=== PATIENT | male | born 1955 | race Caucasian/White ===

== ENCOUNTER 2016-08-03 11:28 | Emergency (ER) | payer OTHER ==
[~2016-08-03] VITALS: Ht 180.3 cm; Wt 124.0 kg
[2016-08-03 11:32] VITALS: BP 149/101; PULSE 85; RESP 16; TEMP 98.8; O2SAT 96
--- NOTE | 2016-08-03 11:49 | PD ---
HPI . congestion for 3 weeks Chief Complaint: Cold / Flu Symptoms Time Seen by Provider: 11:49 Travel History International Travel<30 days: No Contact w/Intl Traveler<30days: No Traveled to known affect area: No History of Present Illness HPI 61-year-old male with no past medical history here with complaints of congestion for 3 weeks. Patient is also complaining of a sore throat that recently started. Patient tells me that he has had some intermittent congestion in his chest for about 3 weeks. He has not seen anyone for this. He denies any fever or chills, chest pain, nausea, vomiting or diaphoresis. His blood pressure is elevated today and when we discussed whether or not he is on any blood pressure medications he tells me no. He does not have a primary care provider in the area. We discussed establishing with PCP In the area. [facility] Past Medical History Medical History: Denies Significant Hx Tetanus Vaccination: > 5 Years Influenza Vaccination: No Past Surgical History Other Surgery: Yes (Veins removed Lt. leg) Social History Alcohol Use: Yes (Occ.) Tobacco Use: No Substance Use: No Allergies-Medications (Allergen,Severity, Reaction): Coded Allergies: No Known Allergies (Unverified , 08/03/16) Reported Meds & Prescriptions Reported Meds & Active Scripts Active Medrol Dosepak (Methylprednisolone) 4 Mg Dspk 4 Mg PO DIRECTED Per Pharmacist direction Zithromax Z-[place] (Azithromycin) 250 Mg Dspk 250 Mg PO DIRECTED 500 MG (2 tabs) day 1, then 1 tab days 2-5. Tessalon Perles (Benzonatate) 100 Mg Cap 100 Mg PO TID PRN Review of Systems General / Constitutional: No: Fever Eyes: No: Visual changes HENT: Positive: Sore Throat, Congestion, No: Headaches Cardiovascular: No: Chest Pain or Discomfort Respiratory: Positive: Cough, No: Shortness of Breath Gastrointestinal: No: Abdominal Pain Genitourinary: No: Dysuria Musculoskeletal: No: Pain Skin: No Rash Neurologic: No: Weakness Psychiatric: No: Depression Endocrine: No: Polydipsia Hematologic/Lymphatic: No: Easy Bruising Physical Exam Narrative GENERAL: AAO x 3, no acute distress, Well-nourished, well-developed patient. SKIN: Warm and dry. No visible rashes or bruising. HEAD: Normocephalic and atraumatic. EYES: No scleral icterus. No injection or drainage. ENT: No nasal drainage noted. Mucous membranes pink. Airway patent. Moderate posterior pharynx erythema, without exudate. TMs normal bilaterally. NECK: Supple, trachea midline. No JVD.no lymphadenopathy. CARDIOVASCULAR: Regular rate and rhythm without murmurs, gallops, or rubs. RESPIRATORY: Breath sounds equal bilaterally. No accessory muscle use. No rhonchi or rales. GASTROINTESTINAL: Abdomen soft, non-tender, nondistended. EXTREMITIES: No cyanosis or edema. BACK: Nontender without obvious deformity. No CVA tenderness. PSYCH: AAO x 3, normal affect. Data Data Last Documented VS Vital Signs Date Time Temp Pulse Resp B/P Pulse Ox O2 Delivery O2 Flow Rate FiO2 08/03/16 11:40 18 Room Air 08/03/16 11:32 98.8 85 149/101 96 MDM Medical Decision Making Medical Screen Exam Complete: Yes Emergency Medical Condition: Yes Medical Record Reviewed: Yes Differential Diagnosis Acute pharyngitis, acute sinusitis, acute bronchitis Narrative Course 61-year-old male with no past medical history here with complaints of congestion for 3 weeks. Patient is also complaining of a sore throat that recently started. Patient tells me that he has had some intermittent congestion in his chest for about 3 weeks. He has not seen anyone for this. He denies any fever or chills, chest pain, nausea, vomiting or diaphoresis. His blood pressure is elevated today and when we discussed whether or not he is on any blood pressure medications he tells me no. He does not have a primary care provider in the area. We discussed establishing with PCP In the area. Patient seen and examined. Exam is essentially unremarkable except for posterior pharynx erythema without exudates. I do not recommend any further testing, however I do recommend that he establishes with a primary care provider for further work up of his blood pressure. I discussed this with him and his significant other and explained the importance of bp control. Patient states, "you can lead a horse to water, but you can't make him drink" I explained I will go ahead and treat him for an acute pharyngitis as well as bronchitis. We will use azithromycin( to also cover for PNA), prednisone and Tessalon Perles when necessary. Once again, I stressed the need to establish with PCP. Patient verbalized understanding of instructions, questions were answered, and thanked me for their care. I advised them if their condition worsens, please return to the nearest emergency room for further care. Diagnosis Primary Impression: Acute bronchitis Qualified Code: J20.9 - Acute bronchitis, unspecified organism Additional Impressions: Acute pharyngitis Qualified Code: J02.9 - Acute pharyngitis, unspecified etiology Elevated blood pressure reading without diagnosis of hypertension Patient Instructions: Acute Bronchitis (ED), General Instructions, Hypertension (ED), Pharyngitis (ED) Additional Instructions: Please return to emergency department if your symptoms return or worsen. Follow up with your primary care provider. Take medications as prescribed. As we discussed, you will need to establish with a primary care provider to have your blood pressure followed. Take all medications as prescribed and return to the emergency department if your symptoms return or worsen. Med/Other Pt SpecificInfo: Prescription(s) given Scripts Methylprednisolone Dosepak (Medrol Dosepak)4 Mg Dspk4 Mg PO DIRECTED #1 DSPK Ref 0 Per Pharmacist direction Prov:Venessa Mendes MD 08/03/16 Azithromycin (Zithromax Z-London)250 Mg [id number] Mg PO DIRECTED #1 DSPK Ref 0 500 MG (2 tabs) day 1, then 1 tab days 2-5. Prov:Venessa Mendes MD 08/03/16 Benzonatate (Tessalon Perles)100 Mg [id number] Mg PO TID PRN (COUGH) #20 CAP Ref 0 Prov:Venessa Mendes MD 08/03/16 Disposition: 01 DISCHARGE HOME Condition: Stable Nga Parson Aug 03, 2016 11:49
[2016-08-03] MEDS ORDERED: BENZ100 PO (12:01)
[2016-08-03] MEDS ORDERED: ZITHTAB PO (12:01)
[2016-08-03] MEDS ORDERED: MEDR4PAK PO (12:01)
== END 2016-08-03 12:19 | disposition home or self-care (01) ==
LOC: PHEFT 11:28
DX: J20.9 Acute bronchitis, unspecified (principal); J02.9 Acute pharyngitis, unspecified; R03.0 Elevated blood-pressure reading, without diagnosis of hypertension
CPT/HCPCS: 99283

== ENCOUNTER 2016-08-20 20:56 | Inpatient (IN) | payer OTHER ==
[~2016-08-20] VITALS: Ht 180.3 cm; Wt 122.0 kg
[~2016-08-20 20:56] MED LIST: BENZ100 PO; MEDR4PAK PO; ZITHTAB PO
[2016-08-20 23:29] VITALS: BP 173/111; PULSE 182; RESP 24; TEMP 98.2; O2SAT 97
[2016-08-21] VITALS (44 sets, daily range): BP systolic 75–173; BP diastolic 57–111; PULSE 86–180; RESP 17–40; TEMP 97.1–100; O2SAT 91–98
[2016-08-21] MEDS ORDERED: SODIUM CHLORIDE 0.9% FLUSH 10 ML FLUSH IVF PRN ×3 (00:45→02:30)
[2016-08-21] MEDS ORDERED: ACETAMINOPHEN 325 MG TAB PO ONE (00:45)
[2016-08-21] MEDS ORDERED: DILTIAZEM HCL 25 MG/5 ML VIAL IV PUSH ONE (00:45)
[2016-08-21] MEDS ORDERED: SODIUM CHLOR 0.9% 1000 ML INJ 1,000 ML IV SCH (00:45)
[2016-08-21] MEDS ORDERED: ASPIRIN 81 MG CHEW TAB PO ONE (00:45)
[2016-08-21] MEDS: DILTIAZEM INJ 125 MG in SODIUM CHLORIDE 0.9% INJ 100 ML IV SCH ×3 (00:52→15:37)
[2016-08-21 01:07] LABS: AUTOMATED NEUTROPHIL # 7.2 TH/MM3 (1.8-7.7); BASOPHIL # 0.1 TH/MM3 (0-0.2); BASOPHIL % 0.8 % (0.0-2.0); EOSINOPHIL # 0.3 TH/MM3 (0-0.4); EOSINOPHIL % 3.5 % (0.0-4.0); HEMATOCRIT 46.1 % (39.0-51.0); HEMO FLAGS DIFF FINAL; LYMPH % 14.2 % (9.0-44.0); LYMPHOCYTE # 1.3 TH/MM3 (1.0-4.8); MEAN CELL VOLUME 82.3 FL (80.0-100.0); MEAN CORPUSCULAR HEMOGLOBIN 26.3 PG (27.0-34.0); MONO % 5.8 % (0.0-8.0); NEUT % 75.7 % (16.0-70.0); PLATELET COUNT 267 TH/MM3 (150-450); RED CELL DISTRIBUTION WIDTH 14.7 % (11.6-17.2); WHITE BLOOD COUNT 9.4 TH/MM3 (4.0-11.0)
[2016-08-21 01:14] LABS: CHLORIDE 106 MEQ/L (98-107); POTASSIUM 4.4 MEQ/L (3.5-5.1); SODIUM (NA) 142 MEQ/L (136-145)
--- NOTE | 2016-08-21 01:15 | RADHPO ---
EXAM DATE/TIME: 08/21/2016 00:56 [place] COMPARISON: No previous studies available for comparison. INDICATIONS : Shortness of breath. MEDICAL HISTORY : None. SURGICAL HISTORY : None. ENCOUNTER: Initial ACUITY: 1 day PAIN SCORE: 0/10 LOCATION: chest FINDINGS: Cardiomegaly, bilateral pleural effusions suspected and basilar consolidation of the right greater th an left lung base. CONCLUSION: Bilateral effusions and consolidation suspect right greater than left. Cardiomegaly. Garrett Davis MD on August 21, 2016 at 1:13 Board Certified Radiologist. This report was verified electronically.
[2016-08-21 01:18] LABS: ANION GAP 9 MEQ/L (5-15); APTT (PATIENT) 26.2 SEC (24.3-30.1); BLOOD UREA NITROGEN 19 MG/DL (7-18); MAGNESIUM 2.3 MG/DL (1.5-2.5); PROTHROMBIN TIME - PATIENT 11.4 SEC (9.8-11.6)
[2016-08-21 01:21] LABS: ALT (GPT) 37 U/L (12-78); AST (GOT) 19 U/L (15-37); GLOMERULAR FILTRATION RATE 56 ML/MIN (>89)
[2016-08-21 01:22] LABS: TOTAL BILIRUBIN ADULT 0.5 MG/DL (0.2-1.0)
[2016-08-21 01:24] LABS: ALKALINE PHOSPHATASE 76 U/L (45-117)
[2016-08-21] MEDS ORDERED: SODIUM CHLOR 0.9% 250 ML INJ 250 ML IV ONE (01:30)
--- NOTE | 2016-08-21 01:38 | PD ---
HPI Chief Complaint: Respiratory Symptoms Time Seen by Provider: 00:33 Travel History International Travel<30 days: No Contact w/Intl Traveler<30days: No Traveled to known affect area: No History of Present Illness HPI 61-year-old male presents to the emergency department for complaint of shortness of breath chest discomfort intermittently swelling of the lower extremities with increased redness and warmth orthopnea no PND and dyspnea on exertion. No prior known history of CAD hypertension dyslipidemia diabetes CHF or atrial fibrillation. Patient states he does not have a primary care physician and has not been seen by a doctor for several years. Patient denies tobacco use or alcohol use. Patient reports she was on azithromycin for 5 days for diagnosis of bronchitis 08/03/16. Patient states he hasn't felt well since that time however over the past week has noted increasing shortness of breath palpitations and increased lower extremity swelling with increased redness. Patient had previous surgery to the left lower extremity for for venous insufficiency and has had no issues with that subsequently. Patient denies any lower extremity pallor claudication and no coolness of the extremities also no new increased warmth or redness of the extremities except the anterior shins left greater than right. Patient denies any injury or fall. Patient rates pain 0/10 in intensity. PFSH Past Medical History Narrative Medical Peripheral vascular disease, pneumonia, venous insufficiency; venous insufficiency; occ alcohol use; nursing notes reviewed Hypertension: Yes Pneumonia: Yes ("WALKING") Tetanus Vaccination: > 5 Years Influenza Vaccination: No Past Surgical History Other Surgery: Yes (Veins removed Lt. leg) Social History Alcohol Use: Yes (Occ.) Tobacco Use: No Substance Use: No Allergies-Medications (Allergen,Severity, Reaction): Coded Allergies: No Known Allergies (Unverified , 08/21/16) Reported Meds & Prescriptions Reported Meds & Active Scripts Active No Active Prescriptions or Reported Medications Narrative Medication none Review of Systems Except as stated in HPI: all other systems reviewed are Neg General / Constitutional: No: Fever, Chills HENT: No: Headaches Cardiovascular: Positive: Chest Pain or Discomfort, Palpitations, Tachycardia Respiratory: Positive: Shortness of Breath, Orthopnea, No: Pleuritic Pain Gastrointestinal: No: Nausea, Vomiting, Abdominal Pain Genitourinary: No: Flank Pain Musculoskeletal: Positive: Edema, No: Myalgias, Arthralgias Skin: Positive Rash Neurologic: No: Weakness Psychiatric: Positive: Anxiety Hematologic/Lymphatic: No: Easy Bruising Physical Exam Narrative GENERAL: Well-developed well-nourished male in moderate distress speaking in complete sentences SKIN: Warm and dry. HEAD: Normocephalic. EYES: No scleral icterus. No injection or drainage. NECK: Supple, trachea midline. No JVD or lymphadenopathy. CARDIOVASCULAR: Increased irregular irregular Regular rate and rhythm without murmurs, gallops, or rubs. RESPIRATORY: Breath sounds equal bilaterally clear to auscultation. No accessory muscle use. GASTROINTESTINAL: Abdomen soft, non-tender, nondistended. MUSCULOSKELETAL: No cyanosis, bilateral lower leg and pedal pitting edema. Radial and dorsalis pedis pulses 2+ to palpation BACK: Nontender without obvious deformity. No CVA tenderness. Data Data Last Documented VS Vital Signs Date Time Temp Pulse Resp B/P Pulse Ox O2 Delivery O2 Flow Rate FiO2 08/21/16 02:18 96 28 106/75 93 Nasal Cannula 3.5 08/21/16 01:59 98.0 Orders Ecg Monitoring (08/21/16 00:33) Blood Pressure (08/21/16 00:33) Iv Access Insert/Monitor (08/21/16 00:33) Oximetry (08/21/16 00:33) Vital Signs (08/21/16 00:33) Diltiazem Inj (Cardizem Inj) (08/21/16 00:45) Diltiazem Inj (Cardizem Inj) (08/21/16 00:45) Sodium Chloride 0.9% Flush (Ns Flush) (08/21/16 00:45) Electrocardiogram (08/21/16 00:33) B-Type Natriuretic Peptide (08/21/16 00:33) Ckmb (Isoenzyme) Profile (08/21/16 00:33) Complete Blood Count With Diff (08/21/16 00:33) Comprehensive Metabolic Panel (08/21/16 00:33) Magnesium (Mg) (08/21/16 00:33) Prothrombin Time / Inr (Pt) (08/21/16 00:33) Act Partial Throm Time (Ptt) (08/21/16 00:33) Troponin I (08/21/16 00:33) Lipase (08/21/16 00:33) Chest, Single Ap (3/23/17 00:33) Ecg Monitoring (08/21/16 00:33) Bilateral Bp Monitoring (08/21/16 00:33) Iv Access Insert/Monitor (08/21/16 00:33) Oximetry (08/21/16 00:33) Oxygen Administration (08/21/16 00:33) Aspirin Chew (Aspirin Chew) (08/21/16 00:45) Sodium Chloride 0.9% Flush (Ns Flush) (08/21/16 00:45) Blood Culture (08/21/16 00:33) Thyroid Stimulating Hormone (08/21/16 00:33) Lactic Acid (08/21/16 00:33) Acetaminophen (Tylenol) (08/21/16 00:45) Sodium Chlor 0.9% 1000 Ml Inj (Ns 1000 M (08/21/16 00:45) Sodium Chlor 0.9% 250 Ml Inj (Ns 250 Ml (08/21/16 01:30) Diltiazem Inj (Cardizem Inj) (08/21/16 01:45) Digoxin Inj (Lanoxin Inj) (08/21/16 01:45) Admit To Inpatient (08/21/16 ) Vital Signs (Adult) Q4H (08/21/16 02:15) Activity Oob With Assistance (08/21/16 02:15) Pail Bailer / Telemetry .CONTINUOUS (08/21/16 02:15) Intake + Output LOUISA.QSHIFT (08/21/16 02:15) Diet Heart Healthy (08/21/16 Breakfast) Sodium Chloride 0.9% Flush (Ns Flush) (08/21/16 02:15) Sodium Chloride 0.9% Flush (Ns Flush) (08/21/16 09:00) Basic Metabolic Panel (Bmp) (08/22/16 06:00) Complete Blood Count With Diff (08/22/16 06:00) Pt Request For Service (08/21/16 02:15) Case Management Consult (08/21/16 02:15) Enoxaparin Inj (Lovenox Inj) (08/21/16 09:00) Naloxone Inj (Narcan Inj) (08/21/16 02:15) Inpatient Certification (08/21/16 ) Echo 2d Comp W/Dopp(Routine) (08/21/16 ) Admit Order (Ed Use Only) (08/21/16 ) ^ Saline Lock (08/21/16 02:17) Resp Oxygen Vini C Titrat 1-4 L (08/21/16 ) ^ Notify Dr: Other (08/21/16 02:17) Sodium Chloride 0.9% Flush (Ns Flush) (08/21/16 09:00) Sodium Chloride 0.9% Flush (Ns Flush) (08/21/16 02:30) Digoxin Inj (Lanoxin Inj) (08/21/16 02:30) Doxycycline Inj (Vibramycin Inj) (08/21/16 02:30) Labs Laboratory Tests Test 08/21/16 00:49 White Blood Count 9.4 TH/MM3 Red Blood Count 5.60 MIL/MM3 Hemoglobin 14.8 GM/DL Hematocrit 46.1 % Mean Corpuscular Volume 82.3 FL Mean Corpuscular Hemoglobin 26.3 PG Mean Corpuscular Hemoglobin 32.0 % Concent Red Cell Distribution Width 14.7 % Platelet Count 267 TH/MM3 Mean Platelet Volume 8.8 FL Neutrophils (%) (Auto) 75.7 % Lymphocytes (%) (Auto) 14.2 % Monocytes (%) (Auto) 5.8 % Eosinophils (%) (Auto) 3.5 % Basophils (%) (Auto) 0.8 % Neutrophils # (Auto) 7.2 TH/MM3 Lymphocytes # (Auto) 1.3 TH/MM3 Monocytes # (Auto) 0.5 TH/MM3 Eosinophils # (Auto) 0.3 TH/MM3 Basophils # (Auto) 0.1 TH/MM3 CBC Comment DIFF FINAL Differential Comment Prothrombin Time 11.4 SEC Prothromb Time International 1.0 RATIO Ratio Activated Partial 26.2 SEC Thromboplast Time Sodium Level 142 MEQ/L Potassium Level 4.4 MEQ/L Chloride Level 106 MEQ/L Carbon Dioxide Level 27.0 MEQ/L Anion Gap 9 MEQ/L Blood Urea Nitrogen 19 MG/DL Creatinine 1.30 MG/DL Estimat Glomerular Filtration 56 ML/MIN Rate Random Glucose 116 MG/DL Lactic Acid Level 1.5 mmol/L Calcium Level 8.6 MG/DL Magnesium Level 2.3 MG/DL Total Bilirubin 0.5 MG/DL Aspartate Amino Transf 19 U/L (AST/SGOT) Alanine Aminotransferase 37 U/L (ALT/SGPT) Alkaline Phosphatase 76 U/L Total Creatine Kinase 80 U/L Troponin I 0.03 NG/ML B-Type Natriuretic Peptide 430 PG/ML Total Protein 7.6 GM/DL Albumin 3.7 GM/DL Lipase 74 U/L Thyroid Stimulating Hormone 1.570 uIU/ML 3rd [facility] Medical Decision Making Medical Screen Exam Complete: Yes Emergency Medical Condition: Yes Medical Record Reviewed: Yes Interpretation(s) EKG: Atrial fibrillation with rapid ventricular response rate [address] elevation or injury pattern change noted Last Impressions Chest X-Ray 08/21/16 0033 Signed Impressions: Service Date/Time: , August 21, 2016 00:56 - CONCLUSION: Bilateral effusions and consolidation suspect right greater than left. Cardiomegaly. Garrett Davis MD CBC & BMP Diagram 08/21/16 00:49 ck: 80, not elevated; troponin I: 0.03, not elevated'; bnp: 430, elevated tsh: 1.570, wnl lactic acid: 1.5, not elevated Differential Diagnosis Atrial fibrillation with RVR, electronic disturbance, ACS, CHF, pneumonia, cellulitis, thyroid dysfunction Narrative Course Patient placed on monitoring specialist IV access obtained EKG performed without injury pattern patient administered Cardizem bolus 0.25 mg/kg along with Cardizem infusion Patient with rate improvement but ongoing tachycardia therefore additional bolus administered with low normal blood pressure Patient clinically improved advise resulted Chest x-ray shows bilateral pleural effusions with consolidation right greater than left, cardiomegaly and cephalization; maintenance fluids discontinued Call placed to medical service for admission of patient with new-onset atrial fibrillation with RVR with left lower extremity anterior cellulitis and chf BMP resulted 430 Physician Communication Physician Communication case discussed with and admitted by [facility] service MD Dr Hannon; call placed to dexigraph operator-- Dr Moeller Diagnosis Primary Impression: Atrial fibrillation with RVR Additional Impressions: Cellulitis of left leg CHF (congestive heart failure) Admitting Information Admitting Physician Requests: Admit Scripts No Active Prescriptions or Reported Meds Laurie Burton MD Aug 21, 2016 01:38
[2016-08-21 01:42] LABS: CREATINE KINASE 80 U/L (39-308)
[2016-08-21] MEDS ORDERED: DIGOXIN 0.5 MG/2 ML VIAL IV PUSH ONE ×2 (01:45→02:30)
[2016-08-21] MEDS ORDERED: DILTIAZEM HCL 25 MG/5 ML VIAL IV ONE (01:45)
[2016-08-21] MEDS ORDERED: DILTIAZEM HCL 50 MG/10 ML VIAL IV PUSH ONE (02:00)
[2016-08-21] MEDS ORDERED: SODIUM CHLORIDE 0.9% FLUSH 5 ML FLUSH IV FLUSH PRN (02:15)
[2016-08-21] MEDS ORDERED: NALOXONE HCL 0.4 MG/ML AMP IV PRN (02:15)
[2016-08-21] MEDS ORDERED: DOXYCYCLINE INJ 100 MG in SODIUM CHLORIDE 0.9% INJ 100 ML IV ONE (02:30)
[2016-08-21] MEDS ORDERED: FUROSEMIDE 40 MG/4 ML VIAL IV PUSH ONE (04:15)
[2016-08-21] MEDS ORDERED: CHLORHEXIDINE GLUCONATE 2 % 1 PACK (2 CLOTHS)(extra cloths) TOP PRN (08:30)
[2016-08-21] MEDS: ENOXAPARIN SODIUM 40 MG/0.4 ML SYRINGE SQ SCH (08:42)
[2016-08-21] MEDS ORDERED: SODIUM CHLORIDE 0.9% FLUSH 10 ML FLUSH IV FLUSH SCH ×2 (09:00)
--- NOTE | 2016-08-21 09:01 | HHI.HP ---
HPI Service [facility] Hospitalists Primary Care Physician No Primary Care Physician Admission Diagnosis AFRVR; chf; LE cellulitis Diagnoses: (1) Atrial fibrillation with RVR Diagnosis: Principal (2) CHF (congestive heart failure) Diagnosis: Principal (3) Lower extremity cellulitis Diagnosis: Principal Chief Complaint: heart racing, SOB, leg swelling Travel History International Travel<30 Days: No Contact w/Intl Traveler <30 Da: No Traveled to Known Affected Are: No History of Present Illness 61-year-old male with history of peripheral vascular disease and hypertension is admitted for A. fib RVR, CHF, and lower extremity cellulitis. The patient was seen in the [facility] ED on 08/03/16 and states he was diagnosed with bronchitis at that time. He states he was prescribed steroids and antibiotics and he took all of them but he continued not feeling well and took NyQuil at home. He then states his feet started swelling and he admits to worsening redness of the lower extremities are last 4-5 days. He denies any fevers or chills. He states his heart has also been "beating fast" along with significant shortness of breath. He denies any headache, blurred vision. Denies any cough. Denies any nausea, vomiting, dysuria, or diarrhea. He does state he has a sore throat and it hurts to swallow. Denies any personal history of diabetes, hyperlipidemia, stroke, or cardiac issues. Review of Systems Except as stated in HPI: all other systems reviewed are Neg Past Family Social History Past Medical History Peripheral vascular disease Hypertension Past Surgical History Veins removed from left leg. Reported Medications No Active Prescriptions or Reported Medications Allergies: Coded Allergies: No Known Allergies (Unverified , 08/21/16) Family History Mother: of CHF at age 86. Father: at age 86. Brother: Lymphoma Social History Denies alcohol use. Denies history of cigarette smoking. Patient admits to history of cocaine use last time 5 years ago. Denies any history of IVDA. Physical Exam Vital Signs Vital Signs Date Time Temp Pulse Resp B/P Pulse Ox O2 Delivery O2 Flow Rate FiO2 08/21/16 08:24 93 Nasal Cannula 3.50 08/21/16 06:32 128 31 151/71 93 08/21/16 06:02 148 22 130/105 91 08/21/16 06:00 123 08/21/16 05:00 24 139/96 93 08/21/16 05:00 142 08/21/16 04:38 130 34 114/91 94 08/21/16 04:19 95 Nasal Cannula 3.50 08/21/16 04:19 97.1 124 36 149/105 95 08/21/16 04:10 133 08/21/16 03:39 Nasal Cannula 08/21/16 03:13 107 28 112/88 95 Nasal Cannula 3.5 08/21/16 02:40 94 24 103/83 94 Nasal Cannula 3.5 08/21/16 02:18 96 28 106/75 93 Nasal Cannula 3.5 08/21/16 01:59 98.0 113 24 103/73 93 Nasal Cannula 3.5 08/21/16 01:41 115 20 120/76 92 Nasal Cannula 3.5 08/21/16 01:28 162 120/101 08/21/16 01:16 149 20 137/106 98 Nasal Cannula 2 08/21/16 01:09 143 24 140/102 95 3 137/106 08/21/16 01:04 95 3 08/21/16 01:04 135 20 171/106 96 Nasal Cannula 3 08/21/16 01:03 155 24 171/106 95 Nasal Cannula 3.5 08/21/16 00:36 100.0 08/21/16 00:30 178 24 08/21/16 00:30 180 168/106 08/21/16 00:18 170 24 173/111 08/20/16 23:29 98.2 182 24 173/111 97 Physical Exam GENERAL: This is a well-nourished, well-developed patient, in no apparent distress. SKIN: Slightly warm erythema over bilateral lower extremities. HEAD: Atraumatic. Normocephalic. EYES: Pupils equal round and reactive. Extraocular motions intact. No scleral icterus. No injection or drainage. ENT: Dentures noted. Throat without erythema, tonsillar hypertrophy or exudate. Uvula midline. Airway patent. NECK: Trachea midline. CARDIOVASCULAR: Tachycardic rate 130's-158 on exam with irregular irregular rhythm noted. RESPIRATORY: Decreased breath sounds at the bases. GASTROINTESTINAL: Abdomen soft, non-tender, nondistended. No guarding. MUSCULOSKELETAL: Swelling of bilateral lower legs and feet. NEUROLOGICAL: Awake and alert. Motor grossly within normal limits. Normal speech. PSYCHIATRIC: Normal mood and affect. Insight and judgement normal. Laboratory Laboratory Tests Test 08/21/16 00:49 White Blood Count 9.4 Red Blood Count 5.60 Hemoglobin 14.8 Hematocrit 46.1 Mean Corpuscular Volume 82.3 Mean Corpuscular Hemoglobin 26.3 Mean Corpuscular Hemoglobin 32.0 Concent Red Cell Distribution Width 14.7 Platelet Count 267 Mean Platelet Volume 8.8 Neutrophils (%) (Auto) 75.7 Lymphocytes (%) (Auto) 14.2 Monocytes (%) (Auto) 5.8 Eosinophils (%) (Auto) 3.5 Basophils (%) (Auto) 0.8 Neutrophils # (Auto) 7.2 Lymphocytes # (Auto) 1.3 Monocytes # (Auto) 0.5 Eosinophils # (Auto) 0.3 Basophils # (Auto) 0.1 CBC Comment DIFF FINAL Differential Comment Prothrombin Time 11.4 Prothromb Time International 1.0 Ratio Activated Partial 26.2 Thromboplast Time Sodium Level 142 Potassium Level 4.4 Chloride Level 106 Carbon Dioxide Level 27.0 Anion Gap 9 Blood Urea Nitrogen 19 Creatinine 1.30 Estimat Glomerular Filtration 56 Rate Random Glucose 116 Lactic Acid Level 1.5 Calcium Level 8.6 Magnesium Level 2.3 Total Bilirubin 0.5 Aspartate Amino Transf 19 (AST/SGOT) Alanine Aminotransferase 37 (ALT/SGPT) Alkaline Phosphatase 76 Total Creatine Kinase 80 Troponin I 0.03 B-Type Natriuretic Peptide 430 Total Protein 7.6 Albumin 3.7 Lipase 74 Thyroid Stimulating Hormone 1.570 3rd Gen Date/Time Procedure Status Source Growth 08/21/16 00:55 Aerobic Blood Culture Received Blood Peripheral Pending 08/21/16 00:55 Anaerobic Blood Culture Received Blood Peripheral Pending Result Diagram: 08/21/16 0049 08/21/16 0049 Imaging Last Impressions Chest X-Ray 08/21/163 Signed Impressions: Service Date/Time: July 00:56 - CONCLUSION: Bilateral effusions and consolidation suspect right greater than left. Cardiomegaly. Garrett A. Ryan, MD Assessment and Plan Assessment and Plan 61-year-old male with: A. fib RVR: EKG personally interpreted with A. fib RVR rate 191 with no evidence of ischemia. Troponin 0.03. TSH normal. Patient initially received a 34 mg bolus of IV Cardizem followed by a 47 mg bolus as well as 0.25 mg of digoxin in the ED. Also received 162 mg of aspirin. Patient denies any chest pain. -Consult cardiology. -Echo -Continue Cardizem drip -Monitor vitals and telemetry CHF: Patient with significant shortness of breath. Chest x-ray personally interpreted with bilateral pleural effusions and B/L consolidations greater on the right than left BNP of 430. O2 saturation 93% on 3.5 L O2. -Continue O2 as needed -Patient received 40 mg IV Lasix with good urine output. Will continue Lasix 20 mg every 12 hours IV. Monitor electrolytes and renal function. -Monitor I's & O's. -PO fluid restiction 1500 mL -Echo as above Bilateral LE cellulitis: Patient with history of peripheral vascular disease per EMR. Afebrile. White blood cell count normal. -Patient received one dose of doxycycline in the ED. Will continue doxycycline 100 mg IV every 12 hours. DVT prevention: Lovenox 40 mg q24 sq. Written by Bibiana Galindo PA-C acting as scribe for Dr. Martinez on 08/21/16 at 0827. All or portions of this note were transcribed by scribhodan Galindo PA-C. I , Dr. Jason Martinez personally performed the history, physical exam, and medical decision making; and confirmed the accuracy of the information in the transcribed note. Authenticated by Dr. Jason Martinez on 08/21/16 at 10:21. Discussed Condition With patient Physician Certification 2 Midnight Certification Type: Admission for Inpatient Services Order for Inpatient Services The services are ordered in accordance with Medicare regulations or non- Medicare payer requirements, as applicable. In the case of services not specified as inpatient-only, they are appropriately provided as inpatient services in accordance with the 2-midnight benchmark. Estimated LOS (days): 2 days is the estimated time the patient will need to remain in the hospital, assuming treatment plan goals are met and no additional complications. Post-Hospital Plan: Bibiana Harrington Aug 21, 2016 09:01 Jason Martinez MD Aug 21, 2016 10:22
[2016-08-21] MEDS: FUROSEMIDE 20 MG/2 ML VIAL IV PUSH SCH ×2 (10:26→20:05)
[2016-08-21] MEDS: SODIUM CHLORIDE 0.9% FLUSH 5 ML FLUSH IV FLUSH SCH ×2 (10:27→20:05)
[2016-08-21] MEDS: DOXYCYCLINE INJ 100 MG in SODIUM CHLORIDE 0.9% INJ 100 ML IV SCH (14:19)
--- NOTE | 2016-08-21 14:52 | EKG ---
Date Performed: 08/21/2016 Time Performed: 00:28:50 PTAGE: 61 years EKG: Atrial fibrillation with uncontrolled ventricular response. Abnormal ECG NO PREVIOUS TRACING DOCTOR: Caden Marrero Interpretating Date/Time 08/21/2016 14:43:18
[2016-08-21] MEDS ORDERED: METOPROLOL TARTRATE 25 MG TAB PO ONE (15:00)
[2016-08-21] MEDS ORDERED: METOPROLOL TARTRATE 5 MG/5 ML VIAL IV PUSH ONE (15:00)
[2016-08-21 16:46] LABS: AMPHETAMINE, URINE NEG (NEG)
[2016-08-21 16:47] LABS: COCAINE, URINE NEG (NEG)
[2016-08-21 17:22] LABS: BARBITURATES, URINE NEG (NEG)
--- NOTE | 2016-08-21 18:36 | MB ---
cc: HARLAN PICKARD DO DATE OF CONSULTATION August 21, 2016 REASON FOR CONSULTATION Atrial fibrillation with rapid ventricular response. HISTORY OF PRESENT ILLNESS Leonidas Godfrey is a pleasant 61-year-old male who presents to [facility] emergency room on August 20, 2016 with a complaint of shortness of breath, palpitations and swelling of the lower extremities. He was recently seen and diagnosed with bronchitis and placed on azithromycin for five days. Since that time, he has not felt well and over the past week he has noticed increased shortness of breath with palpitations and lower extremity edema as well as erythema. seen. He denies any fevers or chills. He denies chest pain. Since being in the hospital, he has been placed on a Cardizem drip which is currently at 15 mg per hour. Per the patient, he has no significant medical history, but he admits to not seeing a doctor in a long time. PAST MEDICAL HISTORY 1. Per the patient peripheral vascular disease with poor circulation (I believe the patient is probably referring to his venous insufficiency, though) 2. Hypertension. PAST SURGICAL HISTORY Vein stripping of his left leg. ALLERGIES NO KNOWN DRUG ALLERGIES. MEDICATIONS Denies. FAMILY HISTORY Mother of congestive heart failure at the age of 86. Father at the age of 86. Brother has lymphoma. SOCIAL HISTORY The patient denies alcohol, tobacco or drug abuse. He does have a history of cocaine use with the last time being around five years ago. REVIEW OF SYSTEMS 14-systems were reviewed including osteopathic, pertinent positives and negatives above otherwise negative. PHYSICAL EXAMINATION VITAL SIGNS: Temperature 97.8, heart rate 112, blood pressure 119/90, respirations 30, pulse ox 93% on 3 liters nasal cannula. GENERAL: The patient appears well in no acute distress, alert, awake and oriented x3. HEENT: Extraocular muscles intact. Mucous membranes moist. NECK: Supple. No JVD at 45 degrees. No carotid bruits heard bilaterally. Carotid upstroke is brisk in nature. HEART: Irregularly irregular and tachycardiac. A 1/6 holosystolic murmur noted at the apex. LUNGS: Decreased breath sounds at the bases with minimal rales. ABDOMEN: Soft, nontender, nondistended, no organomegaly noted. EXTREMITIES: 2+ pitting edema bilaterally with erythema and chronic changes of venous insufficiency. NEUROLOGIC: No focal deficits. SKIN: Warm, dry and intact. OSTEOPATHIC: No kyphoscoliosis, lordosis or paraspinal tender points. LABORATORY FINDINGS Hemoglobin 14.8, hematocrit 46.1, platelets 267. Potassium 4.4, BUN 19, creatinine 1.3, troponin 0.03. BNP 430, TSH 1.57. CARDIOLOGY STUDIES Electrocardiogram (August 21, 2016 at 0028) atrial fibrillation with rapid ventricular response. IMPRESSION 1. New onset atrial fibrillation with rapid ventricular response. 2. Acute heart failure most likely due to atrial fibrillation with rapid ventricular response. 3. Lower extremity edema most likely due to atrial fibrillation with rapid ventricular response. 4. Bilateral lower extremity cellulitis. 5. History of chronic venous insufficiency. 6. Hypertension. RECOMMENDATIONS 1. Mr. Godfrey appears to have new onset atrial fibrillation with rapid ventricular response which has then led him into heart failure. 2. We will continue to diurese him as possible. 3. We will continue him on the Cardizem drip and attempt to add beta brandin therapy as his blood pressure will allow. Once heart rates are controlled, Cardizem IV could be changed to Cardizem p.o. If blood pressures do not allow for further heart rate management with calcium channel blockers or beta blockers, he may need further management with digoxin. 4. We will check a 2-D echo to look at his overall left ventricular function, cardiac structure and possible valvulopathies. 5. I did speak to him about possible long-term anticoagulation, although this is somewhat difficult as he sits with a CHADS vas score of one to two (hypertension, congestive heart failure but that is most likely due to his rapid heart rate). It is questionable whether he has vascular disease at this time. As he site an intermediate spot, I would most likely anticoagulate him for the prison. He seemed agreeable to Eliquis and after stabilized in the hospital before discharge, this can be started at 5 mg b.i.d. Further recommendations will be made based on the hospital course. Thank you for allowing me to see Leonidas Godfrey. If there are any questions please do not hesitate to call. Harlan Pickard DO VGP/ /2:42 PM /6:16 PM
--- NOTE | 2016-08-21 20:01 | EC ---
Study Study Date:08/21/2016 STUDY CONCLUSIONS SUMMARY - Procedure narrative: Transthoracic echocardiography. Image quality was fair. Technically difficult due to tachycardia. The study was technically limited due to poor acoustic window availability. - Left ventricle: The cavity size was at the upper limits of normal. Wall thickness was normal. Systolic function was severely reduced. The estimated ejection fraction was in the range of 25% to 30%. Diffuse hypokinesis. - Mitral valve: Mildly calcified annulus. Mild regurgitation. - Tricuspid valve: Mild-moderate regurgitation. If LV function is below 40, please consider prescribing an ACEI or ARB or document rationale for non-use. PROCEDURE DATA STUDY STATUS: Elective. Procedure: Transthoracic echocardiography. Image quality was fair. Technically difficult due to tachycardia. The study was technically limited due to poor acoustic window availability. Scanning was performed from the parasternal, apical, and subcostal acoustic windows. Study completion: The patient tolerated the procedure well. Transthoracic echocardiography. M-mode, complete 2D, complete spectral Doppler, and color Doppler. Height: Height: 71in. Weight: Weight: 295.4lb. Body mass index: BMI: 41.3kg/m^2. Body surface area: BSA: 2.49m^2. Patient status: Inpatient. CARDIAC ANATOMY LEFT VENTRICLE: The cavity size was at the upper limits of normal. Wall thickness was normal. Systolic function was severely reduced. The estimated ejection fraction was in the range of 25% to 30%. Diffuse hypokinesis. AORTIC VALVE: The valve appears to be grossly normal. Doppler: There was no stenosis. No significant regurgitation. MITRAL VALVE: Mildly calcified annulus. Doppler: There was no evidence for stenosis. Mild regurgitation. Peak gradient: 4mm Hg (D). LEFT ATRIUM: The atrium was mildly dilated. ATRIAL SEPTUM: No defect or patent foramen ovale was identified. RIGHT VENTRICLE: The cavity size was mildly dilated. PULMONIC VALVE: Not well visualized. TRICUSPID VALVE: The valve appears to be grossly normal. Doppler: There was no evidence for stenosis. Mild-moderate regurgitation. PERICARDIUM: There was no pericardial effusion. Patient weight: 295.4lb _Ejection fraction:_ 65-75% _Fractional shortening:_ 32% up to 5Kg 5-11.5Kg 11.6-22.9Kg 23-45Kg 45-57Kg Aortic Root 7-13 <17 13-22 17-27 17-27 LA diam 6-13 <23 24-38 33-47 37-40 RVID 10-17 7-15 7-15 7-18 8-17 LVIDd 12-22 <32 24-38 33-47 37-40 LVPW 2-4 3-6 5-7 6-8 7-8 IVS 2-4 3-6 5-7 6-8 7-8 BASIC MEASUREMENTS ADULT Normal Left ventricle LV internal dimension, ED, chordal level, 51.4 mm 43-52 PLAX LV internal dimension, ES, chordal level, *44.6 mm 23-38 PLAX Fractional shortening, chordal level, PLAX *13 % >29 LV posterior wall thickness, ED 10.3 mm IVS/LVPW ratio, ED 1.01 <1.3 Ventricular septum Septal thickness, ED 10.4 mm Aortic valve Leaflet separation 21 mm 15-26 Aorta Root diameter, ED 27 mm Left atrium Anterior-posterior dimension 44 mm Anterior-posterior dimension index 1.77 cm/m^2 <2.2 BASIC MEASUREMENTS ADULT Normal Aortic valve Leaflet separation 21 mm 15-26 DOPPLER MEASUREMENTS ADULT Normal Main pulmonary artery Pressure, S *42 mm Hg =30 Mitral valve Peak E-wave velocity 94.6 cm/s Peak gradient, D 4 mm Hg Tricuspid valve Regurgitant peak velocity 270 cm/s Peak RV-RA gradient, S 29 mm Hg Maximal regurgitant velocity 270 cm/s Systemic veins Estimated CVP 10 mm Hg Right ventricle RV pressure, S *42 mm Hg <30 Pulmonic valve Peak velocity, S 34.6 cm/s LEGEND: Mean values are shown as u=mean value. Asterisk (*) knight values outside specified normal range. Prepared and signed by Harlan Eid [id number]
[2016-08-21] MEDS: CHLORHEXIDINE GLUCONATE 2 % 1 PACK (2 CLOTHS)(taper/protocol) TOP SCH (20:04)
[2016-08-21] MEDS: MUPIROCIN 2% OINT 1 APPLIC/GM SYR NASAL SCH (20:05)
[2016-08-21] MEDS: METOPROLOL TARTRATE 25 MG TAB PO SCH (20:05)
[2016-08-22] VITALS (30 sets, daily range): BP systolic 86–135; BP diastolic 51–98; PULSE 86–124; RESP 0–34; TEMP 97.3–98.6; O2SAT 77–99
[2016-08-22] MEDS: DOXYCYCLINE INJ 100 MG in SODIUM CHLORIDE 0.9% INJ 100 ML IV SCH (02:13)
[2016-08-22 04:42] LABS: AUTOMATED NEUTROPHIL # 10.7 TH/MM3 (1.8-7.7); BASOPHIL # 0.1 TH/MM3 (0-0.2); EOSINOPHIL % 0.2 % (0.0-4.0); HEMO FLAGS DIFF FINAL; LYMPH % 5.1 % (9.0-44.0); LYMPHOCYTE # 0.6 TH/MM3 (1.0-4.8); MEAN CELL VOLUME 81.9 FL (80.0-100.0); MEAN CORPUSCULAR HEMOGLOBIN 26.7 PG (27.0-34.0); MEAN CORPUSCULAR HGB CONC 32.6 % (32.0-36.0); MONO % 9.3 % (0.0-8.0); NEUT % 84.4 % (16.0-70.0); PLATELET COUNT 219 TH/MM3 (150-450); RED BLOOD COUNT 5.38 MIL/MM3 (4.50-5.90); RED CELL DISTRIBUTION WIDTH 14.5 % (11.6-17.2); WHITE BLOOD COUNT 12.6 TH/MM3 (4.0-11.0)
[2016-08-22 04:51] LABS: POTASSIUM 5.8 MEQ/L (3.5-5.1)
[2016-08-22 04:53] LABS: BICARBONATE 27.5 MEQ/L (21.0-32.0)
[2016-08-22] MEDS ORDERED: SODIUM POLYSTYRENE SULFONATE SUSP 15 GM/60 ML CUP PO ONE ×3 (05:45→12:00)
[2016-08-22] MEDS ORDERED: DEXTROSE 50% IN WATER 50 ML VIAL(D50) IV PUSH ONE (06:00)
[2016-08-22] MEDS ORDERED: CALCIUM GLUCONATE 10% 1 GM/10 ML VIAL SLOW IVP ONE (06:00)
[2016-08-22] MEDS ORDERED: INSULIN HUMAN REGULAR 1,000 UNITS/10 ML VIAL IV PUSH ONE (06:15)
--- NOTE | 2016-08-22 06:33 | PD.CARD.PN ---
Subjective Subjective Remarks The chart was reviewed. The patient denies chest pain, shortness of breath, palpitations, GI symptoms or bleeding. He does not follow with any physician regularly. He was taken off the Cardizem drip and atrial fibrillation rate is approximately 100-105 average. Echocardiogram shows severe left ventricular dysfunction. Objective Medications Reviewed Vital Signs / I&O Vital Signs Date Time Temp Pulse Resp B/P Pulse Ox O2 Delivery O2 Flow Rate FiO2 08/22/16 05:00 103 30 107/83 08/22/16 04:00 97.3 108 30 114/88 97 08/22/16 04:00 108 08/22/16 03:00 95 24 114/88 08/22/16 02:00 95 08/22/16 01:00 86 24 119/53 08/22/16 00:00 92 08/22/16 00:00 97.3 92 30 93/51 08/21/16 23:00 86 36 76/63 08/21/16 22:00 86 36 75/57 08/21/16 22:00 86 08/21/16 21:00 92 24 115/87 95 08/21/16 20:00 90 36 117/85 08/21/16 20:00 88 08/21/16 20:00 97 Nasal Cannula 4.00 08/21/16 19:25 93 Nasal Cannula 3.50 08/21/16 19:00 92 36 113/94 93 08/21/16 18:00 92 08/21/16 18:00 92 40 121/86 93 08/21/16 17:30 95 Nasal Cannula 2.00 08/21/16 17:00 86 25 113/87 08/21/16 16:00 98 08/21/16 16:00 97.7 98 38 94/68 94 08/21/16 15:00 102 30 128/95 08/21/16 14:00 112 08/21/16 14:00 112 32 119/90 93 08/21/16 13:00 97.8 132 30 108/92 92 08/21/16 12:09 118 27 139/100 93 08/21/16 12:00 114 08/21/16 12:00 114 24 138/101 93 08/21/16 11:30 152 22 142/101 08/21/16 11:00 120 29 131/90 93 08/21/16 10:30 144 30 135/91 08/21/16 10:00 118 08/21/16 10:00 118 31 110/79 95 08/21/16 09:30 132 32 135/78 08/21/16 09:00 130 17 124/89 08/21/16 08:30 144 36 109/84 91 08/21/16 08:24 93 Nasal Cannula 3.50 08/21/16 08:00 92 Nasal Cannula 4.00 08/21/16 08:00 137 08/21/16 08:00 97.5 126 34 137/86 91 08/21/16 07:02 120 32 109/82 08/21/16 06:32 128 31 151/71 93 I/O 08/21/16 08/21/16 08/21/16 08/22/16 08/22/16 08/22/16 06:59 14:59 22:59 06:59 14:59 22:59 Intake Total 667 ml 662 ml 100 ml Output Total 1100 ml 2100 ml Balance -433 ml -1438 ml 100 ml Intake Oral 120 ml 520 ml 100 ml IV Total 547 ml 142 ml Output Urine Total 1100 ml 2100 ml # Bowel Movements 0 0 Physical Exam GENERAL: Very overweight patient in no apparent distress. SKIN: Warm and dry. NECK: JVD normal - less than or equal to 5 cm H20. CARDIOVASCULAR: Irregular rate and rhythm without murmurs, gallops, or rubs. RESPIRATORY: Normal breath sounds - equal bilaterally. No accessory muscle use. No wheezes, rales or rubs. PERIPHERY: No cyanosis. 2+ edema Laboratory Laboratory Tests Test 08/21/16 08/21/16 08/22/16 08:45 16:30 04:20 Nasal Screen MRSA (PCR) POSITIVE Urine Opiates Screen NEG Urine Barbiturates Screen NEG Urine Amphetamines Screen NEG Urine Benzodiazepines Screen NEG Urine Cocaine Screen NEG Urine Cannabinoids Screen NEG White Blood Count 12.6 TH/MM3 Red Blood Count 5.38 MIL/MM3 Hemoglobin 14.4 GM/DL Hematocrit 44.0 % Mean Corpuscular Volume 81.9 FL Mean Corpuscular Hemoglobin 26.7 PG Mean Corpuscular Hemoglobin 32.6 % Concent Red Cell Distribution Width 14.5 % Platelet Count 219 TH/MM3 Mean Platelet Volume 8.9 FL Neutrophils (%) (Auto) 84.4 % Lymphocytes (%) (Auto) 5.1 % Monocytes (%) (Auto) 9.3 % Eosinophils (%) (Auto) 0.2 % Basophils (%) (Auto) 1.0 % Neutrophils # (Auto) 10.7 TH/MM3 Lymphocytes # (Auto) 0.6 TH/MM3 Monocytes # (Auto) 1.2 TH/MM3 Eosinophils # (Auto) 0.0 TH/MM3 Basophils # (Auto) 0.1 TH/MM3 CBC Comment DIFF FINAL Differential Comment Sodium Level 142 MEQ/L Potassium Level 5.8 MEQ/L Chloride Level 104 MEQ/L Carbon Dioxide Level 27.5 MEQ/L Anion Gap 11 MEQ/L Blood Urea Nitrogen 29 MG/DL Creatinine 2.40 MG/DL Estimat Glomerular Filtration 28 ML/MIN Rate Random Glucose 108 MG/DL Calcium Level 8.7 MG/DL Imaging Last 48 hours Impressions Chest X-Ray 08/21/16 0033 Signed Impressions: Service Date/Time: July 00:56 - CONCLUSION: Bilateral effusions and consolidation suspect right greater than left. Cardiomegaly. Garrett Davis MD Assessment and Plan Assessment and Plan Problems: Rapid atrial fibrillation Diffuse cardiomyopathy, possibly tachycardia induced. Acute on chronic kidney disease Hypertension Obesity Noncompliance Recommendations: Continue beta blockers and will add in low-dose diltiazem for rate control. His blood pressure is too low for KWASI inhibitors or angiotensin receptor blockers right now. Continue Lovenox for now. Ideally he does need full anticoagulation but I'm concerned with his noncompliance. Diuresis following inputs and outputs, electrolytes and renal function. His renal function has deteriorated and this will need to be followed closely. I will leave it to the primary service to put in a renal consult. We will follow. Frederick Ocasio MD Aug 22, 2016 06:33
[2016-08-22] MEDS: DILTIAZEM HCL 30 MG TAB PO SCH ×2 (07:26→11:31)
[2016-08-22] MEDS: FUROSEMIDE 20 MG/2 ML VIAL IV PUSH SCH (08:31)
[2016-08-22] MEDS: METOPROLOL TARTRATE 25 MG TAB PO SCH ×2 (08:31→21:00)
[2016-08-22] MEDS: ENOXAPARIN SODIUM 40 MG/0.4 ML SYRINGE SQ SCH (08:31)
[2016-08-22] MEDS: SODIUM CHLORIDE 0.9% FLUSH 5 ML FLUSH IV FLUSH SCH ×2 (08:31→20:47)
[2016-08-22] MEDS: MUPIROCIN 2% OINT 1 APPLIC/GM SYR NASAL SCH ×2 (08:31→23:30)
--- NOTE | 2016-08-22 09:26 | HHI.PR ---
Subjective Remarks Follow-up for [facility] RVR, CHF. Patient was found to be in acute renal failure with hyperkalemia this morning. Admits to shortness of breath. Denies any chest pain. Patient states he felt "delusional" stating he was disoriented this morning not knowing where he was although states he has not slept well for the past few days due to being ill although slept better last night. Objective Vitals Vital Signs Date Time Temp Pulse Resp B/P Pulse Ox O2 Delivery O2 Flow Rate FiO2 08/22/16 06:00 97.3 102 30 99/74 92 08/22/16 06:00 102 08/22/16 05:00 103 30 107/83 08/22/16 04:00 97.3 108 30 114/88 97 08/22/16 04:00 108 08/22/16 03:00 95 24 114/88 08/22/16 02:00 95 08/22/16 01:00 86 24 119/53 08/22/16 00:00 92 08/22/16 00:00 97.3 92 30 93/51 08/21/16 23:00 86 36 76/63 08/21/16 22:00 86 36 75/57 08/21/16 22:00 86 08/21/16 21:00 92 24 115/87 95 08/21/16 20:00 90 36 117/85 08/21/16 20:00 88 08/21/16 20:00 97 Nasal Cannula 4.00 08/21/16 19:25 93 Nasal Cannula 3.50 08/21/16 19:00 92 36 113/94 93 08/21/16 18:00 92 08/21/16 18:00 92 40 121/86 93 08/21/16 17:30 95 Nasal Cannula 2.00 08/21/16 17:00 86 25 113/87 08/21/16 16:00 98 08/21/16 16:00 97.7 98 38 94/68 94 08/21/16 15:00 102 30 128/95 08/21/16 14:00 112 08/21/16 14:00 112 32 119/90 93 08/21/16 13:00 97.8 132 30 108/92 92 08/21/16 12:09 118 27 139/100 93 3/23/17 12:00 114 08/21/16 12:00 114 24 138/101 93 08/21/16 11:30 152 22 142/101 08/21/16 11:00 120 29 131/90 93 08/21/16 10:30 144 30 135/91 08/21/16 10:00 118 08/21/16 10:00 118 31 110/79 95 08/21/16 09:30 132 32 135/78 I/O 08/21/16 08/21/16 08/21/16 08/22/16 08/22/16 08/22/16 07:00 15:00 23:00 07:00 15:00 23:00 Intake Total 667 ml 662 ml 100 ml 120 ml Output Total 1100 ml 2100 ml Balance -433 ml -1438 ml 100 ml 120 ml Intake Oral 120 ml 520 ml 100 ml 120 ml IV Total 547 ml 142 ml Output Urine Total 1100 ml 2100 ml # Bowel Movements 0 0 0 Result Diagram: 08/22/1641908/22/16419 Objective Remarks GENERAL: Slightly disheveled appearing well-nourished, well-developed patient in no apparent distress stting in SKIN: Erythema over bilateral lower legs more extensive on the right, appears same as yesterday. HEAD: Atraumatic. Normocephalic. CARDIOVASCULAR: Heart rate in the 1teens increasing to ~126 while talking. Irregularly irregular rhythm. RESPIRATORY: Diminished breath sounds but no crackles. GASTROINTESTINAL: Abdomen soft, non-tender, nondistended. MUSCULOSKELETAL: Bilateral lower extremity edema, same as yesterday. NEUROLOGICAL: Awake and alert. Motor grossly within normal limits. Normal speech. PSYCHIATRIC: Appropriate mood and affect; insight and judgment normal. Urinary Catheter: No Vascular Central Line Catheter: No A/P Problem List: (1) Atrial fibrillation with RVR ICD Code: I48.91 Status: Acute (2) CHF (congestive heart failure) ICD Code: I50.9 Status: Acute (3) Lower extremity cellulitis ICD Code: L03.119 Status: Acute (4) Hyperkalemia ICD Code: E87.5 Status: Acute (5) Acute renal failure ICD Code: N17.9 Status: Acute (6) Leukocytosis ICD Code: D72.829 Status: Acute Assessment and Plan 61-year-old male with: A. fib RVR: EKG personally interpreted with A. fib RVR rate 191 with no evidence of ischemia. Troponin 0.03. TSH normal. Patient initially received a 34 mg bolus of IV Cardizem followed by a 47 mg bolus as well as 0.25 mg of digoxin in the ED. Also received 162 mg of aspirin. Patient denies any chest pain. -Still in RVR but HR improved from yesterday. -S/p Cardizem drip -Cardiology consultation appreciated, following. Patient started on oral metoprolol and Cardizem. Electric [employer] expresses concern over compliance with medication if started on anticoagulation although recommended. -Monitor vitals and telemetry CHF: Patient with significant shortness of breath. Chest x-ray personally interpreted with bilateral pleural effusions and B/L consolidations greater on the right than left BNP of 430. -Echo shows EF of 25-30% with mild mitral valve regurgitation and mild to moderate tricuspid valve regurgitation -Continue O2 as needed -Lasix was started at 20 mg every 12 hours IV, but patient now has acute renal failure. Will decrease to once daily. -Monitor I's & O's. -PO fluid restiction 1500 mL -Appreciate cardiology consultation as above. Acute renal failure: BUN/creatinine 29/2.4. Could be attributed to diuresis or antibiotics. -Consult nephrology -Lasix decreased. -Avoid nephrotoxins -Repeat am BMP Hyperkalemia: Acute. Attributed to acute renal failure. Potassium 5.8-->5.2 status post 10 units of insulin, 1 g calcium gluconate, 50 mL Dextrose, and 30 g of Kayexalate. -Patient having BMs per RN, but administer another 15 g of Kayexalate. -Repeat K+ this afternoon -Monitor telemetry Bilateral LE cellulitis: Patient with history of peripheral vascular disease per EMR. Afebrile. White blood cell count increased to 12.6 today although infection appears unchanged. Could be stress reaction related to other acute illnesses. -Patient received 3 doses of doxycycline but now has acute renal failure. Discontinue doxycycline. -Start clindamycin 600 mg IV to 6 hours -Consult infectious disease on appropriate antibiotic management -Repeat am CBC. DVT prevention: Lovenox 40 mg q24 sq. Written by Bibiana Galindo PA-C acting as scribe for Dr. Martinez on 08/22/16 at 0850. All or portions of this note were transcribed by beto YIP I , Dr. Jason Martinez personally performed the history, physical exam, and medical decision making; and confirmed the accuracy of the information in the transcribed note. Authenticated by Dr. Jason Martinez on 08/22/16 at 13:15. Bibiana Galindo Aug 22, 2016 09:26 Jason Martinez MD Aug 22, 2016 13:16
[2016-08-22] MEDS ORDERED: INFLUENZA VIRUS VACCINE (QUADRIVALENT) 0.5 ML SYR IM ONE (10:00)
[2016-08-22] MEDS ORDERED: PNEUMOCOCCAL POLYVALENT INJ 25 MCG/0.5 ML SYR IM ONE (10:00)
[2016-08-22] MEDS: CLINDAMYCIN INJ 600 MG in SODIUM CHLORIDE 0.9% INJ 100 ML IV SCH ×3 (12:00→23:27)
[2016-08-22] MEDS ORDERED: DILTIAZEM HCL 30 MG TAB PO ONE (16:45)
[2016-08-22 16:55] LABS: MAGNESIUM 2.3 MG/DL (1.5-2.5); POTASSIUM 3.9 MEQ/L (3.5-5.1)
[2016-08-22] MEDS ORDERED: DILTIAZEM HCL 60 MG TAB PO SCH (22:00)
[2016-08-22] MEDS: DILTIAZEM HCL 60 MG TAB PO SCH (23:26)
[2016-08-23] VITALS (35 sets, daily range): BP systolic 93–135; BP diastolic 62–92; PULSE 90–128; RESP 20–34; TEMP 97.4–98.2; O2SAT 92–97
[2016-08-23] MEDS: CHLORHEXIDINE GLUCONATE 2 % 1 PACK (2 CLOTHS)(taper/protocol) TOP SCH (04:00)
[2016-08-23 04:11] LABS: BLOOD, URINE NEG (NEG); GLUCOSE,URINE NEG (NEG); KETONE, URINE NEG (NEG); NITRITE,URINE NEG (NEG); PH, URINE 5.5 (5.0-8.5)
[2016-08-23 04:18] LABS: COMMENT (UR) CULT NOT INDICATED; CULTURE IF INDICATED CULT NOT INDICATED; RBC, URINE 0-2 /hpf (0-3); SQUAMOUS EPITHELIAL CELL URINE 0-5 /hpf (0-5); URINE COLOR YELLOW (YELLW/STRAW); WBC, URINE 0-2 /hpf (0-5)
[2016-08-23] MEDS: CLINDAMYCIN INJ 600 MG in SODIUM CHLORIDE 0.9% INJ 100 ML IV SCH ×2 (05:30→11:41)
[2016-08-23] MEDS: DILTIAZEM HCL 60 MG TAB PO SCH ×3 (06:17→17:48)
[2016-08-23 06:19] LABS: AUTOMATED NEUTROPHIL # 5.1 TH/MM3 (1.8-7.7); BASOPHIL % 0.4 % (0.0-2.0); EOSINOPHIL # 0.2 TH/MM3 (0-0.4); EOSINOPHIL % 2.5 % (0.0-4.0); HEMATOCRIT 39.1 % (39.0-51.0); HEMO FLAGS DIFF FINAL; LYMPH % 12.4 % (9.0-44.0); LYMPHOCYTE # 0.8 TH/MM3 (1.0-4.8); MEAN CELL VOLUME 82.1 FL (80.0-100.0); MEAN CORPUSCULAR HEMOGLOBIN 26.3 PG (27.0-34.0); MEAN CORPUSCULAR HGB CONC 32.1 % (32.0-36.0); MONO % 6.2 % (0.0-8.0); NEUT % 78.5 % (16.0-70.0); PLATELET COUNT 152 TH/MM3 (150-450); RED BLOOD COUNT 4.77 MIL/MM3 (4.50-5.90); RED CELL DISTRIBUTION WIDTH 14.3 % (11.6-17.2); WHITE BLOOD COUNT 6.5 TH/MM3 (4.0-11.0)
[2016-08-23 06:26] LABS: POTASSIUM 3.9 MEQ/L (3.5-5.1)
[2016-08-23 06:30] LABS: BICARBONATE 30.2 MEQ/L (21.0-32.0)
--- NOTE | 2016-08-23 07:20 | MB ---
cc: MARIANO VARGAS MD DATE OF CONSULTATION: 08/22/2016 REASON FOR CONSULTATION: Elevated BUN and creatinine and hyperkalemia for evaluation. HISTORY OF PRESENT ILLNESS This is a 61-year-old male with past medical history of hypertension and atrial fibrillation, congestive heart failure, peripheral vascular disease who was admitted with shortness of breath and swelling of the legs. I was called to see the patient because of increase in the creatinine and potassium. The patient has creatinine of 1.3 on admission and it increased to 2.4 and the potassium on admission was normal and it increased to 5.8. The patient denies any previous history of renal disease. He has this gradual worsening of shortness of breath. He has not seen any doctor for long time, except for some emergency room visits. He is not following regularly. He has history of hypertension and peripheral vascular disease but he denies taking any medications on the regular basis. He has this gradual worsening of shortness of breath and he was not feeling well at home and he was taking NyQuil and he was taking Advil he was seen in the emergency department on August 03 and at that time he was diagnosed with acute bronchitis and he was given steroids and azithromycin. Denies any dysuria, hematuria or difficulty passing urine. PAST MEDICAL HISTORY 1. Hypertension 2. Ischemic heart disease 3. Congestive heart failure 4. Peripheral vascular disease. PAST SURGICAL HISTORY History of some veins removed from the leg. SOCIAL HISTORY There is no history of smoking or alcoholism. Past history of using cocaine but there is no history of IV drug abuse. REVIEW OF SYSTEMS The patient has no history of fever. No sore throat. No headache, dizziness, he has gradual worsening shortness breath increased with exertion with mild cough. There is no sputum. No chest pain. No palpitations. No nausea, vomiting. No abdominal pain. No history of diarrhea. No dysuria, hematuria or difficulty passing urine. He also noted that he has more and more swelling in the legs has been going on for some time. There is some more redness in the right leg. ALLERGIES NO KNOWN DRUG ALLERGIES. MEDICATIONS Currently 1. He is on Lasix 20 mg IV daily. 2. Metoprolol 25 mg q.12 h. 3. Lovenox 40 mg Subcu 24-hour. 4. Clindamycin 600 mg q. 6-hour. 5. Cardizem 60 mg q. 6-hour. PHYSICAL EXAMINATION: IN GENERAL: On examination the patient is awake, alert. He is sitting in the chair not in acute distress. VITAL SIGNS: His last blood pressure is 99/74. His blood pressure has been the lower side. The lowest recorded was 75/57 temperature is 97.3. HEAD, EYES, EARS, NOSE, AND THROAT: Pupils equal, round, reactive to light and accommodation. Equally reacting to light. Nonicteric. Conjunctiva pale. NECK: Supple. JVD slightly elevated. LUNGS: The patient has bilateral decreased air entry with occasional wheezing. HEART: S1, S2, irregular rhythm. ABDOMEN: Abdomen is distended, soft lax. There is no tenderness. Bowel sounds positive. EXTREMITIES: Bilateral 3+ edema more in the right leg and there is some redness in the lower half of his leg with increased temperature. LABORATORY FINDINGS: Investigations show WBC count is 20.6, hemoglobin 14.4, platelet count of 219, sodium 142. Potassium 5.8, repeat one now, the last one is 3.9 after giving the treatment, chloride 104, bicarb 27.5, BUN 29, creatinine 2.4. Calcium 8.7. Magnesium 2.3, INR 1.0. Toxicology screen was negative. The blood cultures so far negative. IMAGING STUDIES The patient has chest x-ray done and shows bilateral effusion and consolidation possibility of cardiomegaly. Echocardiogram was done and it shows that he has ejection fraction around 25% with diffuse hypokinesia. ASSESSMENT/PLAN 1. Acute kidney injury, with mild chronic kidney disease. 2. Hyperkalemia. 3. Fluid overload status and congestive heart failure. 4. Right leg cellulitis. 5. History of hypertension. 6. Atrial fibrillation. 7. History of noncompliance. The patient has a significant cardiac disease with no ejection fraction and possibly has some chronic kidney disease do not have any baseline creatinine but when he came in here his creatinine was 1.3 and now he developed acute kidney injury. The chronic kidney disease probably related to hypertensive renovascular disease and acute worsening most likely because of ATN from the hypotension that he had. He also has possibly cellulitis of his right leg and is getting clindamycin seen by the cardiology he needs more diuretics but right now his blood pressure on the lower side. He is on Lasix once a day. His blood pressure stabilized and he will need more increase in the diuretics. I will get ultrasound of the kidneys and also urinalysis to see if he has any proteinuria and get the basic serology including PILAR, ANC and complements. To avoid any nephrotoxins. Thank you for the consultation and I will have the patient followed by Dr. Mendez on the weekend MD SUZI Beaver/evangelist /5:36 PM /7:09 AM
--- NOTE | 2016-08-23 08:41 | HHI.PR ---
Subjective Remarks Follow-up for A. fib, CHF, TERRIE, hyperkalemia, and bilateral lower extremity cellulitis. The patient states he feels better today. He denies any chest pain. He does admit to shortness of breath when he over exerts himself. Objective Vitals Vital Signs Date Time Temp Pulse Resp B/P Pulse Ox O2 Delivery O2 Flow Rate FiO2 08/23/16 07:30 94 Nasal Cannula 4.00 08/23/16 06:01 108 25 95/77 95 08/23/16 06:00 108 08/23/16 05:10 98 23 104/82 95 08/23/16 04:01 97.5 108 27 113/92 97 08/23/16 04:00 108 08/23/16 04:00 94 Nasal Cannula 4.00 08/23/16 03:01 94 23 93/78 93 08/23/16 02:00 102 25 109/89 94 08/23/16 02:00 102 08/23/16 01:00 104 20 102/69 94 08/23/16 00:00 95 Nasal Cannula 4.00 08/23/16 00:00 112 08/23/16 00:00 98.0 112 21 96/73 95 08/22/16 23:00 120 21 111/76 94 08/22/16 22:00 114 22 97/75 95 08/22/16 22:00 114 08/22/16 21:24 110 28 93/69 96 08/22/16 21:00 108 28 104/75 96 08/22/16 20:00 111 08/22/16 20:00 120 29 102/88 08/22/16 20:00 95 Nasal Cannula 4.00 08/22/16 19:36 95 Nasal Cannula 4.00 08/22/16 19:00 97.6 114 29 97/78 95 08/22/16 19:00 95 Nasal Cannula 4.00 08/22/16 18:00 120 08/22/16 18:00 120 28 132/98 77 08/22/16 17:00 118 08/22/16 17:00 118 19 135/91 08/22/16 16:00 114 08/22/16 15:08 97.6 124 34 119/93 81 08/22/16 15:00 102 08/22/16 14:00 104 24 86/65 99 08/22/16 14:00 104 08/22/16 13:26 120 0 109/81 98 08/22/16 13:00 110 08/22/16 12:00 98.0 106 20 117/84 08/22/16 12:00 106 08/22/16 11:52 114 26 127/84 08/22/16 11:00 108 08/22/16 10:00 112 08/22/16 10:00 112 29 97/75 95 08/22/16 09:00 118 08/22/16 09:00 92 Nasal Cannula 4.00 08/22/16 09:00 118 26 133/87 95 08/22/16 08:43 116 26 119/97 I/O 08/22/16 08/22/16 08/22/16 08/23/16 08/23/16 08/23/16 07:00 15:00 23:00 07:00 15:00 23:00 Intake Total 120 ml 500 ml 700 ml 300 ml Output Total 500 ml Balance 120 ml 500 ml 700 ml -200 ml Intake Oral 120 ml 400 ml 600 ml 200 ml IV Total 100 ml 100 ml 100 ml Output Urine Total 500 ml # Voids 3 1 1 # Bowel Movements 0 3 0 0 Result Diagram: 08/23/16 0558 08/23/16 0558 Objective Remarks GENERAL: Well-nourished, well-developed patient in no apparent distress. SKIN: Erythema over bilateral lower legs. HEAD: Atraumatic. Normocephalic. CARDIOVASCULAR: Heart rate improved 90s to 110. Irregularly irregular rhythm. RESPIRATORY: CTAB. RR normal. GASTROINTESTINAL: Abdomen soft, non-tender, nondistended. MUSCULOSKELETAL: Bilateral lower extremity edema. NEUROLOGICAL: Awake and alert. Normal speech. PSYCHIATRIC: Appropriate mood and affect; insight and judgment normal. Urinary Catheter: No Vascular Central Line Catheter: No A/P Problem List: (1) Atrial fibrillation with RVR ICD Code: I48.91 Status: Acute (2) CHF (congestive heart failure) ICD Code: I50.9 Status: Acute (3) Lower extremity cellulitis ICD Code: L03.119 Status: Acute (4) Hyperkalemia ICD Code: E87.5 Status: Resolved (5) Acute renal failure ICD Code: N17.9 Status: Acute (6) Leukocytosis ICD Code: D72.829 Status: Acute Assessment and Plan 61-year-old male with: A. lynnette RVR: EKG personally interpreted with A. fib RVR rate 191 with no evidence of ischemia. Troponin 0.03. TSH normal. Patient initially received a 34 mg bolus of IV Cardizem followed by a 47 mg bolus as well as 0.25 mg of digoxin in the ED. Also received 162 mg of aspirin. Patient denies any chest pain. -S/p Cardizem drip -Cardiology consultation appreciated, following. Patient started on oral metoprolol and Cardizem. Refueling Rampman expresses concern over compliance with medication if started on anticoagulation although recommended. -Cardiology increased Cardizem dose to 60 mg q6h yesterday. -Patient started on therapeutic Lovenox dosing. Cr Clearance 51.6. Dosing verified with pharmacist. Lovenox 130 mg sq q12 h initiated. -HR improved. -Monitor vitals and telemetry CHF: Patient with significant shortness of breath. Chest x-ray personally interpreted with bilateral pleural effusions and B/L consolidations greater on the right than left BNP of 430. -Echo shows EF of 25-30% with mild mitral valve regurgitation and mild to moderate tricuspid valve regurgitation -Continue O2 as needed -Lasix 20 mg once daily due to TERRIE. -Monitor I's & O's. -PO fluid restriction 1500 mL -Appreciate cardiology consultation as above. -SOB improved. Acute renal failure: Improved. BUN/creatinine 29/2.4-->39/1.60. Could be attributed to diuresis or antibiotics. -Nephrology consultation appreciated, following. Per nephrology, CKD may be related to hypertensive renal vascular disease and acute worsening could be due to ATN from hypotension. -30 protein on UA -Renal ultrasound pending. -PILAR, ANC, and complement studies pending. -Lasix was decreased. -Avoid nephrotoxins -Repeat am BMP Hyperkalemia: Resolved. Attributed to acute renal failure. Potassium 5.8-->3.9 status post 10 units of insulin, 1 g calcium gluconate, 50 mL Dextrose, and 45 g of Kayexalate. Mg normal. -Monitor telemetry -Monitor BMP Bilateral LE cellulitis: Patient with history of peripheral vascular disease per EMR. Afebrile. White blood cell count improved 12.6-->6.5. -Patient received 3 doses of doxycycline but the had acute renal failure. Doxycycline was discontinued. -Continue clindamycin 600 mg IV q 6 hours. -Infectious disease consult pending regarding appropriate antibiotic management DVT prevention: Lovenox sq. Written by Bibiana Galindo PA-C acting as scribe for Dr. Martinez on 08/23/16 at 0825. All or portions of this note were transcribed by scribe Bibiana Galindo PA-C. I , Dr. Jason Martinez personally performed the history, physical exam, and medical decision making; and confirmed the accuracy of the information in the transcribed note. Authenticated by Dr. Jason Martinez on 08/23/16 at 09:41. Bibiana Galindo Aug 23, 2016 08:41 Jason Martinez MD Aug 23, 2016 09:42
[2016-08-23] MEDS: MUPIROCIN 2% OINT 1 APPLIC/GM SYR NASAL SCH ×2 (10:00→21:46)
[2016-08-23] MEDS: SODIUM CHLORIDE 0.9% FLUSH 5 ML FLUSH IV FLUSH SCH ×2 (10:00→20:00)
[2016-08-23] MEDS: FUROSEMIDE 20 MG/2 ML VIAL IV PUSH SCH (10:00)
[2016-08-23] MEDS: METOPROLOL TARTRATE 25 MG TAB PO SCH ×2 (10:05→21:00)
[2016-08-23] MEDS: ENOXAPARIN SODIUM 150 MG/ML SYRINGE SQ SCH ×2 (11:41→21:51)
--- NOTE | 2016-08-23 13:01 | RADHPO ---
EXAM DATE/TIME: 08/23/2016 12:18 [facility] COMPARISON: No previous studies available for comparison. INDICATIONS : Increased BUN and creatinine. MEDICAL HISTORY : Hypertension. MRSA. Venous insufficiency. SURGICAL HISTORY : Veins removed left leg. ENCOUNTER: Initial ACUITY: 1 day PAIN SCORE: 0/10 LOCATION: Bilateral flank MEASUREMENTS: RIGHT KIDNEY: 10.1 x 5.0 x 6.6 cm LEFT KIDNEY: 11.1 x 5.3 x 5.9 cm FINDINGS: RIGHT KIDNEY: Renal cortex is normal in thickness and echotexture. No hydronephrosis, stone, or mass. LEFT KIDNEY: Renal cortex is normal in thickness and echotexture. No hydronephrosis, stone, or mass. BLADDER: Within normal limits given the degree of distension. Incidental note is made of bilateral pleural effusions. CONCLUSION: 1. The kidneys appear adequate in size and echotexture. There are no findings to indicate renal obstr uction. 2. Bilateral pleural effusions. Hero Chavarria MD on August 23, 2016 at 12:59 Board Certified Radiologist. This report was verified electronically.
[2016-08-23] MEDS ORDERED: DIGOXIN 0.5 MG/2 ML VIAL IV PUSH ONE (14:15)
--- NOTE | 2016-08-23 14:16 | PD.CARD.PN ---
Subjective Subjective Remarks No chest pain. Dyspnea a little better Objective Medications Current Medications Medications (Trade) Dose Ordered Sig/Rosendo Route Start Time Stop Time Status Last Admin (NS Flush) 2 ml UNSCH PRN IV FLUSH 08/21/16 02:15 (Narcan Inj) 0.4 mg UNSCH PRN IV 08/21/16 02:15 Miscellaneous Information Patient in critical care unit? Ass... [id number] XX 08/21/16 08:30 08/21/16 08:30 (Chlorhexidine 2% Cloth) 3 pack DAILY@04 TOP 08/22/16 04:00 08/26/16 04:01 08/23/16 04:00 (Chlorhexidine 2% Cloth) 3 pack UNSCH PRN TOP 08/21/16 08:30 08/26/16 08:25 (NS Flush) 2 ml BID IV FLUSH 08/21/16 09:15 08/23/16 10:00 (Lopressor) 25 mg Q12HR PO 08/21/16 21:00 08/23/16 10:05 (Bactroban Nasal 2% Oint) 1 applic BID NASAL 08/21/16 21:00 08/26/16 09:01 08/23/16 10:00 Furosemide 20 mg 20 mg DAILY IV PUSH 08/23/16 09:00 08/23/16 10:00 (Cleocin Inj/NS Inj) 104 ml @ 208 mls/hr Q6H IV 08/22/16 12:00 08/23/16 11:41 (Cardizem) 60 mg Q6HR PO 08/23/16 00:00 08/23/16 11:41 (Lovenox Inj) 130 mg Q12H SQ 08/23/16 10:00 08/23/16 11:41 (Lanoxin Inj) 0.25 mg ONCE ONCE IV PUSH 08/23/16 14:15 08/23/16 14:16 (Lanoxin Inj) 0.25 mg ONCE ONCE IV PUSH 08/23/16 20:15 08/23/16 20:16 UNV (Lanoxin Inj) 0.25 mg ONCE ONCE IV PUSH 08/24/16 06:15 08/24/16 06:16 UNV Vital Signs / I&O Vital Signs Date Time Temp Pulse Resp B/P Pulse Ox O2 Delivery O2 Flow Rate FiO2 08/23/16 12:06 96 Nasal Cannula 2.00 08/23/16 12:06 101 08/23/16 12:01 98.1 106 25 96/65 95 08/23/16 11:01 106 23 103/75 92 08/23/16 10:45 114 08/23/16 10:45 94 Nasal Cannula 2.00 08/23/16 10:01 110 22 96/67 96 08/23/16 09:01 128 24 135/90 08/23/16 08:30 96 Nasal Cannula 3.00 08/23/16 08:30 108 08/23/16 08:01 97.4 124 22 105/90 08/23/16 07:30 94 Nasal Cannula 4.00 08/23/16 07:01 106 21 108/82 96 08/23/16 06:01 108 25 95/77 95 08/23/16 06:00 108 08/23/16 05:10 98 23 104/82 95 08/23/16 04:01 97.5 108 27 113/92 97 08/23/16 04:00 108 08/23/16 04:00 94 Nasal Cannula 4.00 08/23/16 03:01 94 23 93/78 93 08/23/16 02:00 102 25 109/89 94 08/23/16 02:00 102 08/23/16 01:00 104 20 102/69 94 08/23/16 00:00 95 Nasal Cannula 4.00 08/23/16 00:00 112 08/23/16 00:00 98.0 112 21 96/73 95 08/22/16 23:00 120 21 111/76 94 08/22/16 22:00 114 22 97/75 95 08/22/16 22:00 114 08/22/16 21:24 110 28 93/69 96 08/22/16 21:00 108 28 104/75 96 08/22/16 20:00 111 08/22/16 20:00 120 29 102/88 08/22/16 20:00 95 Nasal Cannula 4.00 08/22/16 19:36 95 Nasal Cannula 4.00 08/22/16 19:00 97.6 114 29 97/78 95 08/22/16 19:00 95 Nasal Cannula 4.00 08/22/16 18:00 120 08/22/16 18:00 120 28 132/98 77 08/22/16 17:00 118 08/22/16 17:00 118 19 135/91 08/22/16 16:00 114 08/22/16 15:08 97.6 124 34 119/93 81 08/22/16 15:00 102 I/O 08/22/16 08/22/16 08/22/16 08/23/16 08/23/16 08/23/16 07:00 15:00 23:00 07:00 15:00 23:00 Intake Total 120 ml 500 ml 700 ml 300 ml Output Total 500 ml Balance 120 ml 500 ml 700 ml -200 ml Intake Oral 120 ml 400 ml 600 ml 200 ml IV Total 100 ml 100 ml 100 ml Output Urine Total 500 ml # Voids 3 1 1 # Bowel Movements 0 3 0 0 Physical Exam Severely obese, No acute distress Neck: can't see neck veins well Chest: absent breath sounds right base CV: S1S2 irr irr, HR still tachy Ext: severe LE edema Laboratory Laboratory Tests Test 08/22/16 08/23/16 08/23/16 16:32 04:00 05:58 Potassium Level 3.9 MEQ/L 3.9 MEQ/L Magnesium Level 2.3 MG/DL Urine Color YELLOW Urine Turbidity CLEAR Urine pH 5.5 Urine Specific [place] 1.021 Urine Protein 30 mg/dL Urine Glucose (UA) NEG mg/dL Urine Ketones NEG mg/dL Urine Occult Blood NEG Urine Nitrite NEG Urine Bilirubin NEG Urine Leukocyte Esterase NEG Urine RBC 0-2 /hpf Urine WBC 0-2 /hpf Urine Squamous Epithelial 0-5 /hpf Cells Urine Bacteria NONE /hpf Microscopic Urinalysis Comment CULT NOT INDICATED White Blood Count 6.5 TH/MM3 Red Blood Count 4.77 MIL/MM3 Hemoglobin 12.6 GM/DL Hematocrit 39.1 % Mean Corpuscular Volume 82.1 FL Mean Corpuscular Hemoglobin 26.3 PG Mean Corpuscular Hemoglobin 32.1 % Concent Red Cell Distribution Width 14.3 % Platelet Count 152 TH/MM3 Mean Platelet Volume 8.7 FL Neutrophils (%) (Auto) 78.5 % Lymphocytes (%) (Auto) 12.4 % Monocytes (%) (Auto) 6.2 % Eosinophils (%) (Auto) 2.5 % Basophils (%) (Auto) 0.4 % Neutrophils # (Auto) 5.1 TH/MM3 Lymphocytes # (Auto) 0.8 TH/MM3 Monocytes # (Auto) 0.4 TH/MM3 Eosinophils # (Auto) 0.2 TH/MM3 Basophils # (Auto) 0.0 TH/MM3 CBC Comment DIFF FINAL Differential Comment Sodium Level 142 MEQ/L Chloride Level 103 MEQ/L Carbon Dioxide Level 30.2 MEQ/L Anion Gap 9 MEQ/L Blood Urea Nitrogen 39 MG/DL Creatinine 1.60 MG/DL Estimat Glomerular Filtration 44 ML/MIN Rate Random Glucose 98 MG/DL Calcium Level 8.2 MG/DL Complement C3 88 MG/DL Complement C4 28 MG/DL Assessment and Plan Problem List: (1) Acute systolic CHF (congestive heart failure) Assessment and Plan: severe fluid overload: severe edema and pleural effusions (2) Left ventricular systolic dysfunction Assessment and Plan: Severe. EF only 25-30%. (3) Atrial fibrillation with RVR Assessment and Plan: Not much room on BP to go up on BB/Dilt so will add digoxin Ean Small MD Aug 23, 2016 14:16
[2016-08-23] MEDS ORDERED: DIGOXIN 0.5 MG/2 ML VIAL IV PUSH SCH ×2 (14:19→20:15)
--- NOTE | 2016-08-23 14:40 | PD.CONS ---
History of Present Illness Service ID CONSULT DR REYNOLDS Consult Requested By Reason for Consult ABX / BLE CELLULITIS Primary Care Physician No Primary Care Physician Diagnoses: (1) Lower extremity cellulitis (2) Left ventricular systolic dysfunction (3) Acute renal failure History of Present Illness 61 Y/O MALE ADM WITH SOB AND SWELLING IN HIS LEGS. HE WAS RECENTLY STARTED ON Z NESSA FOR BRONCHITIS. HE WAS STARTED ON DOXYCYCLINE AND WAS STARTED ON CLEOCIN. YESTERDAY HIS CREATITINE JUMPED TO 2.4 AND ID WAS CONSULTED TO HELP WITH ABX RECOMMENDATIONS. HE STATES HIS LEGS SWELL OFF AND ON WITH REDNESS. Review of Systems Constitutional: DENIES: Chills Respiratory: COMPLAINS OF: Shortness of breath Cardiovascular: COMPLAINS OF: Chest pain Psychiatric: DENIES: Anxiety Past Family Social History Allergies: Coded Allergies: *MDRO Multi-Drug Resistant Organism (Verified Adverse Reaction, Unknown, ) MRSA PCR Screen POSITIVE -08/21/16 Past Medical History Past Medical History Narrative Medical Peripheral vascular disease, pneumonia, venous insufficiency; venous insufficiency; occ alcohol use; nursing notes reviewed Hypertension: Yes Pneumonia: Yes ("WALKING") Tetanus Vaccination: > 5 Years Influenza Vaccination: No Past Surgical History Past Surgical History Other Surgery: Yes (Veins removed Lt. leg) Reported Medications Allergies-Medications (Allergen,Severity, Reaction): Coded Allergies: No Known Allergies (Unverified , 08/21/16) Reported Meds & Prescriptions Reported Meds & Active Scripts Active No Active Prescriptions or Reported Medications Narrative Medication none Family History none Social History no tobacco abuse occassional etoh use no illicit drugs Physical Exam Vital Signs Vital Signs Date Time Temp Pulse Resp B/P Pulse Ox O2 Delivery O2 Flow Rate FiO2 08/23/16 12:06 96 Nasal Cannula 2.00 08/23/16 12:06 101 08/23/16 12:01 98.1 106 25 96/65 95 08/23/16 11:01 106 23 103/75 92 08/23/16 10:45 114 08/23/16 10:45 94 Nasal Cannula 2.00 08/23/16 10:01 110 22 96/67 96 08/23/16 09:01 128 24 135/90 08/23/16 08:30 96 Nasal Cannula 3.00 08/23/16 08:30 108 08/23/16 08:01 97.4 124 22 105/90 08/23/16 07:30 94 Nasal Cannula 4.00 08/23/16 07:01 106 21 108/82 96 08/23/16 06:01 108 25 95/77 95 08/23/16 06:00 108 08/23/16 05:10 98 23 104/82 95 08/23/16 04:01 97.5 108 27 113/92 97 08/23/16 04:00 108 08/23/16 04:00 94 Nasal Cannula 4.00 08/23/16 03:01 94 23 93/78 93 08/23/16 02:00 102 25 109/89 94 08/23/16 02:00 102 08/23/16 01:00 104 20 102/69 94 08/23/16 00:00 95 Nasal Cannula 4.00 08/23/16 00:00 112 08/23/16 00:00 98.0 112 21 96/73 95 08/22/16 23:00 120 21 111/76 94 08/22/16 22:00 114 22 97/75 95 08/22/16 22:00 114 08/22/16 21:24 110 28 93/69 96 08/22/16 21:00 108 28 104/75 96 08/22/16 20:00 111 08/22/16 20:00 120 29 102/88 08/22/16 20:00 95 Nasal Cannula 4.00 08/22/16 19:36 95 Nasal Cannula 4.00 08/22/16 19:00 97.6 114 29 97/78 95 08/22/16 19:00 95 Nasal Cannula 4.00 08/22/16 18:00 120 08/22/16 18:00 120 28 132/98 77 08/22/16 17:00 118 08/22/16 17:00 118 19 135/91 08/22/16 16:00 114 08/22/16 15:08 97.6 124 34 119/93 81 08/22/16 15:00 102 Physical Exam GENERAL: This is an obese patient, in no apparent distress. SKIN: No rashes, ecchymoses or lesions. Cool and dry. His legs are swollen with redness from his ankles to mid calf HEAD: Atraumatic. Normocephalic. No temporal or scalp tenderness. EYES: Pupils equal round and reactive. Extraocular motions intact. No scleral icterus. No injection or drainage. ENT: Nose without bleeding, purulent drainage or septal hematoma. Throat without erythema, tonsillar hypertrophy or exudate. Uvula midline. Airway patent. NECK: Trachea midline. No JVD or lymphadenopathy. Supple, nontender, no meningeal signs. CARDIOVASCULAR: Regular rate and rhythm without murmurs, gallops, or rubs. RESPIRATORY: Clear to auscultation. Breath sounds equal bilaterally. No wheezes , rales, or rhonchi. GASTROINTESTINAL: Abdomen soft, non-tender, nondistended. No hepato-splenomegaly , or palpable masses. No guarding. MUSCULOSKELETAL: Extremities without clubbing, cyanosis. No joint tenderness, effusion, noted. No calf tenderness. Negative Homans sign bilaterally. NEUROLOGICAL: Awake and alert. Cranial nerves II through XII intact. Motor and sensory grossly within normal limits. Five out of 5 muscle strength in all muscle groups. Normal speech. Laboratory Laboratory Tests Test 08/22/16 08/23/16 08/23/16 16:32 04:00 05:58 Potassium Level 3.9 3.9 Magnesium Level 2.3 Urine Color YELLOW Urine Turbidity CLEAR Urine pH 5.5 Urine Specific [place] 1.021 Urine Protein 30 Urine Glucose (UA) NEG Urine Ketones NEG Urine Occult Blood NEG Urine Nitrite NEG Urine Bilirubin NEG Urine Leukocyte Esterase NEG Urine RBC 0-2 Urine WBC 0-2 Urine Squamous Epithelial 0-5 Cells Urine Bacteria NONE Microscopic Urinalysis Comment CULT NOT INDICATED White Blood Count 6.5 Red Blood Count 4.77 Hemoglobin 12.6 Hematocrit 39.1 Mean Corpuscular Volume 82.1 Mean Corpuscular Hemoglobin 26.3 Mean Corpuscular Hemoglobin 32.1 Concent Red Cell Distribution Width 14.3 Platelet Count 152 Mean Platelet Volume 8.7 Neutrophils (%) (Auto) 78.5 Lymphocytes (%) (Auto) 12.4 Monocytes (%) (Auto) 6.2 Eosinophils (%) (Auto) 2.5 Basophils (%) (Auto) 0.4 Neutrophils # (Auto) 5.1 Lymphocytes # (Auto) 0.8 Monocytes # (Auto) 0.4 Eosinophils # (Auto) 0.2 Basophils # (Auto) 0.0 CBC Comment DIFF FINAL Differential Comment Sodium Level 142 Chloride Level 103 Carbon Dioxide Level 30.2 Anion Gap 9 Blood Urea Nitrogen 39 Creatinine 1.60 Estimat Glomerular Filtration 44 Rate Random Glucose 98 Calcium Level 8.2 Complement C3 88 Complement C4 28 Date/Time Procedure Status Source Growth 08/21/16 00:55 Aerobic Blood Culture - Preliminary Resulted Blood Peripheral NO GROWTH IN 2 DAYS 08/21/16 00:55 Anaerobic Blood Culture - Preliminary Resulted Blood Peripheral NO GROWTH IN 2 DAYS Result Diagram: 08/23/1655708/23/16557 Assessment and Plan Problem List: (1) Atrial fibrillation with RVR Status: Acute (2) Lower extremity cellulitis Status: Acute Plan: renal function is better today in view of pulmonary infiltrates will dc cleocin and start teflaro 600mg iv q12h and fu monitor bmp closely (3) Left ventricular systolic dysfunction Status: Acute (4) Acute systolic CHF (congestive heart failure) Status: Acute Tara Jacques Aug 23, 2016 14:40
[2016-08-23] MEDS: CEFTAROLINE IV SCH ×2 (17:48)
[2016-08-23] MEDS: NS IV SCH ×2 (17:48)
--- NOTE | 2016-08-23 21:12 | HHI.NPPN ---
Subjective History of Present Illness 61 year old male with A fib edema, cellulitis Review of Systems General Constitutional: Fatigue Objective Data Data 08/22/16 08/23/16 19:00 07:00 Intake Total 500 ml 1000 ml Output Total 500 ml Balance 500 ml 500 ml Intake Oral 400 ml 800 ml IV Total 100 ml 200 ml Output Urine Total 500 ml # Voids 3 2 # Bowel Movements 3 0 Vital Signs Date Time Temp Pulse Resp B/P Pulse Ox O2 Delivery O2 Flow Rate FiO2 08/23/16 20:11 111 08/23/16 20:03 93 Nasal Cannula 2.00 08/23/16 20:00 98.2 104 27 99/81 93 08/23/16 19:30 92 Nasal Cannula 2.00 08/23/16 19:00 102 26 98/68 93 08/23/16 18:34 112 08/23/16 18:00 112 27 109/85 93 08/23/16 17:00 96 26 109/82 93 08/23/16 16:05 93 Nasal Cannula 2.00 08/23/16 16:05 90 08/23/16 16:01 97.4 102 34 119/82 93 08/23/16 15:01 92 29 108/78 93 08/23/16 14:37 96 08/23/16 14:00 108 28 101/80 94 08/23/16 13:00 106 24 99/62 94 08/23/16 12:06 96 Nasal Cannula 2.00 08/23/16 12:06 101 08/23/16 12:01 98.1 106 25 96/65 95 08/23/16 11:01 106 23 103/75 92 08/23/16 10:45 114 08/23/16 10:45 94 Nasal Cannula 2.00 08/23/16 10:01 110 22 96/67 96 08/23/16 09:01 128 24 135/90 08/23/16 08:30 96 Nasal Cannula 3.00 08/23/16 08:30 108 08/23/16 08:01 97.4 124 22 105/90 08/23/16 07:30 94 Nasal Cannula 4.00 08/23/16 07:01 106 21 108/82 96 08/23/16 06:01 108 25 95/77 95 08/23/16 06:00 108 08/23/16 05:10 98 23 104/82 95 08/23/16 04:01 97.5 108 27 113/92 97 08/23/16 04:00 108 08/23/16 04:00 94 Nasal Cannula 4.00 08/23/16 03:01 94 23 93/78 93 08/23/16 02:00 102 25 109/89 94 08/23/16 02:00 102 08/23/16 01:00 104 20 102/69 94 08/23/16 00:00 95 Nasal Cannula 4.00 08/23/16 00:00 112 08/23/16 00:00 98.0 112 21 96/73 95 08/22/16 23:00 120 21 111/76 94 08/22/16 22:00 114 22 97/75 95 08/22/16 22:00 114 08/22/16 21:24 110 28 93/69 96 -: 08/23/16 0558 08/23/16 0558 Imaging Last Impressions Renal Ultrasound 08/23/16 0000 Signed Impressions: Service Date/Time: Tuesday, August 23, 2016 12:18 - CONCLUSION: 1. The kidneys appear adequate in size and echotexture. There are no findings to indicate renal obstruction. 2. Bilateral pleural effusions. Hero Chavarria MD Chest X-Ray 08/21/16 0033 Signed Impressions: Service Date/Time: July 00:56 - CONCLUSION: Bilateral effusions and consolidation suspect right greater than left. Cardiomegaly. Garrett Davis MD Physical Exam General Appearance: Well Developed Neck Neck Exam: Neck Supple Pulmonary Resp Exam: Decreased Bases Cardiology CV Exam: Arrhythmia Gastrointestinal/Abdomen GI Exam: Soft, Non-Tender, Bowel Sounds Present Extremeties Extremities Exam: Moderate Edema Assessment/Plan Problem List: (1) Acute renal failure Plan: improved likely cardiorenal syndrome A fib rate high Cardiology managing US Kidney neg will follow as needed (2) Lower extremity cellulitis Plan: diurese (3) CHF (congestive heart failure) Plan: on lasix EF 25% (4) Atrial fibrillation with RVR Plan: Cardiology following Problem Qualifiers (1) Acute renal failure: Qualified Code: N17.9 - Acute renal failure, unspecified acute renal failure type Mayo Mendez MD Aug 23, 2016 21:11
[2016-08-24] VITALS (25 sets, daily range): BP systolic 104–140; BP diastolic 63–97; PULSE 76–106; RESP 22–26; TEMP 97.3–98.2; O2SAT 8–95
[2016-08-24] MEDS: DILTIAZEM HCL 60 MG TAB PO SCH ×5 (00:22→23:33)
[2016-08-24] MEDS: NS IV SCH ×4 (03:42→15:17)
[2016-08-24] MEDS: CEFTAROLINE IV SCH ×4 (03:42→15:17)
[2016-08-24] MEDS: CHLORHEXIDINE GLUCONATE 2 % 1 PACK (2 CLOTHS)(taper/protocol) TOP SCH (03:43)
[2016-08-24] MEDS ORDERED: DIGOXIN 0.5 MG/2 ML VIAL IV PUSH SCH (06:15)
[2016-08-24 06:26] LABS: POTASSIUM 3.9 MEQ/L (3.5-5.1)
[2016-08-24 06:29] LABS: BICARBONATE 29.3 MEQ/L (21.0-32.0)
[2016-08-24] MEDS: FUROSEMIDE 20 MG/2 ML VIAL IV PUSH SCH (08:48)
[2016-08-24] MEDS: MUPIROCIN 2% OINT 1 APPLIC/GM SYR NASAL SCH ×2 (08:49→21:29)
[2016-08-24] MEDS: SODIUM CHLORIDE 0.9% FLUSH 5 ML FLUSH IV FLUSH SCH ×2 (08:49→21:33)
[2016-08-24] MEDS: METOPROLOL TARTRATE 25 MG TAB PO SCH ×2 (08:49→21:33)
--- NOTE | 2016-08-24 09:07 | HHI.PR ---
Subjective Remarks Follow-up for A. fib, CHF, bilateral lower extremity cellulitis. Patient denies any chest pain or shortness of breath. RN indicates the patient's oxygen saturation went down to the 90s while sleeping and his O2 was bumped up to 3 L. She requests interline clerk consult for education as patient had questions regarding CHF diet. Objective Vitals Vital Signs Date Time Temp Pulse Resp B/P Pulse Ox O2 Delivery O2 Flow Rate FiO2 08/24/16 07:51 94 Nasal Cannula 3.00 08/24/16 06:00 96 24 126/81 94 08/24/16 06:00 96 08/24/16 05:00 90 22 116/81 95 08/24/16 04:07 95 Nasal Cannula 3.00 08/24/16 04:06 98 08/24/16 04:00 97.5 94 22 107/81 95 08/24/16 03:00 88 22 116/76 95 08/24/16 02:00 90 22 108/75 95 08/24/16 02:00 90 08/24/16 01:00 96 22 107/81 95 08/24/16 00:04 92 Nasal Cannula 3.00 08/24/16 00:04 98.2 97 22 106/78 92 08/24/16 00:00 98 08/23/16 23:00 96 22 119/90 95 08/23/16 22:00 94 08/23/16 22:00 94 30 110/80 93 08/23/16 21:00 96 31 96/74 92 08/23/16 20:11 111 08/23/16 20:03 93 Nasal Cannula 2.00 08/23/16 20:00 98.2 104 27 99/81 93 08/23/16 19:30 92 Nasal Cannula 2.00 08/23/16 19:00 102 26 98/68 93 08/23/16 18:34 112 08/23/16 18:00 112 27 109/85 93 08/23/16 17:00 96 26 109/82 93 08/23/16 16:05 93 Nasal Cannula 2.00 08/23/16 16:05 90 08/23/16 16:01 97.4 102 34 119/82 93 08/23/16 15:01 92 29 108/78 93 08/23/16 14:37 96 08/23/16 14:00 108 28 101/80 94 08/23/16 13:00 106 24 99/62 94 08/23/16 12:06 96 Nasal Cannula 2.00 08/23/16 12:06 101 08/23/16 12:01 98.1 106 25 96/65 95 08/23/16 11:01 106 23 103/75 92 08/23/16 10:45 114 08/23/16 10:45 94 Nasal Cannula 2.00 08/23/16 10:01 110 22 96/67 96 I/O 08/23/16 08/23/16 08/23/16 08/24/16 08/24/16 08/24/16 07:00 15:00 23:00 07:00 15:00 23:00 Intake Total 300 ml 820 ml 520 ml 200 ml Output Total 500 ml 750 ml 350 ml 950 ml Balance -200 ml 70 ml 170 ml -750 ml Intake Oral 200 ml 720 ml 420 ml 100 ml IV Total 100 ml 100 ml 100 ml 100 ml Output Urine Total 500 ml 750 ml 350 ml 950 ml # Voids 1 2 1 2 # Bowel Movements 0 2 0 0 Result Diagram: 08/23/16 0558 08/24/16 0550 Objective Remarks GENERAL: Well-nourished, well-developed patient in no apparent distress. SKIN: Erythema over bilateral lower legs. HEAD: Atraumatic. Normocephalic. CARDIOVASCULAR: Heart rate improved 90s-low 100's. Irregularly irregular rhythm. RESPIRATORY: CTAB. MUSCULOSKELETAL: Bilateral lower extremity edema, mildly improved in the left leg. NEUROLOGICAL: Awake and alert. Normal speech. PSYCHIATRIC: Appropriate mood and affect; insight and judgment normal. Urinary Catheter: No Vascular Central Line Catheter: No A/P Problem List: (1) Atrial fibrillation with RVR ICD Code: I48.91 Status: Acute (2) CHF (congestive heart failure) ICD Code: I50.9 Status: Acute (3) Lower extremity cellulitis ICD Code: L03.119 Status: Acute (4) Hyperkalemia ICD Code: E87.5 Status: Resolved (5) Acute renal failure ICD Code: N17.9 Status: Acute (6) Leukocytosis ICD Code: D72.829 Status: Acute Assessment and Plan 61-year-old male with: A. fib RVR: EKG with A. fib RVR rate 191 with no evidence of ischemia. Troponin 0.03. TSH normal. Patient initially received a 34 mg bolus of IV Cardizem followed by a 47 mg bolus as well as 0.25 mg of digoxin in the ED. Also received 162 mg of aspirin. Patient denies any chest pain. -S/p Cardizem drip -Cardiology consultation appreciated, following. Patient started on oral metoprolol and Cardizem. -Continue Lovenox 130 mg sq q12 h. Primary Class Teacher expresses concern over compliance with medication if started on anticoagulation although recommended. -HR improved. -Monitor vitals and telemetry CHF: Patient with significant shortness of breath. Chest x-ray personally interpreted with bilateral pleural effusions and B/L consolidations greater on the right than left BNP of 430. -Echo shows EF of 25-30% with mild mitral valve regurgitation and mild to moderate tricuspid valve regurgitation -Continue O2 as needed; IS ordered -Continue Lasix 20 mg IV once daily due to TERRIE. -Monitor I's & O's. -PO fluid restriction 1500 mL -Appreciate cardiology consultation as above. -SOB improved. -Churn Driller consult for education regarding diet Acute renal failure: Improved. Cr 2.4-->1.10. Could be attributed to diuresis or antibiotics. -Nephrology consultation appreciated, following. Per nephrology, likely cardiorenal syndrome. -30 protein on UA -Renal ultrasound negative aside from B/L pleural effusions noted -Nephrology to follow PILAR, ANC, and complement studies. -Lasix was decreased. -Avoid nephrotoxins -Monitor renal function Hyperkalemia: Resolved. Attributed to acute renal failure. Potassium 5.8-->3.9 status post 10 units of insulin, 1 g calcium gluconate, 50 mL Dextrose, and 45 g of Kayexalate. Mg normal. -Monitor telemetry -Monitor BMP Bilateral LE cellulitis: Patient with history of peripheral vascular disease per EMR. Afebrile. White blood cell count improved 12.6-->6.5. -Patient received 3 doses of doxycycline but the had acute renal failure. Doxycycline was discontinued. -Clindamycin was started, but ID evaluated patient yesterday, and patient was started on Teflaro. DVT prevention: Lovenox sq. Downgraded to intermediate care. Written by Bibiana Galindo PA-C acting as scribe for Dr. Martinez on 08/24/16 at 0855. All or portions of this note were transcribed by beto Galindo PA-C. I , Dr. Jason Martinez personally performed the history, physical exam, and medical decision making; and confirmed the accuracy of the information in the transcribed note. Authenticated by Dr. Jason Martinez on 08/24/16 at 13:33. Problem Qualifiers (1) Acute renal failure: Qualified Code: N17.9 - Acute renal failure, unspecified acute renal failure type Bibiana Galindo Aug 24, 2016 09:07 Jason Martinez MD Aug 24, 2016 13:33
[2016-08-24] MEDS: ENOXAPARIN SODIUM 150 MG/ML SYRINGE SQ SCH (10:46)
--- NOTE | 2016-08-24 14:41 | PD.CARD.PN ---
Subjective Subjective Remarks no complaints Objective Medications Current Medications Medications (Trade) Dose Ordered Sig/Rosendo Route Start Time Stop Time Status Last Admin (NS Flush) 2 ml UNSCH PRN IV FLUSH 08/21/16 02:15 (Narcan Inj) 0.4 mg UNSCH PRN IV 08/21/16 02:15 Miscellaneous Information Patient in critical care unit? Ass... Q361D XX 08/21/16 08:30 08/21/16 08:30 (Chlorhexidine 2% Cloth) 3 pack DAILY@04 TOP 08/22/16 04:00 08/26/16 04:01 08/24/16 03:43 (Chlorhexidine 2% Cloth) 3 pack UNSCH PRN TOP 08/21/16 08:30 08/26/16 08:25 (NS Flush) 2 ml BID IV FLUSH 08/21/16 09:15 08/24/16 08:49 (Lopressor) 25 mg Q12HR PO 08/21/16 21:00 08/24/16 08:49 (Bactroban Nasal 2% Oint) 1 applic BID NASAL 08/21/16 21:00 08/26/16 09:01 08/24/16 08:49 (Cardizem) 60 mg Q6HR PO 08/23/16 00:00 08/25/16 08:00 08/24/16 12:21 Enoxaparin Sodium 130 mg 130 mg Q12H SQ 08/23/16 10:00 08/24/16 10:46 (Teflaro Inj/NS Inj) 100 ml @ 100 mls/hr Q12H IV 08/23/16 16:00 08/24/16 03:42 (Lanoxin) 0.25 mg DAILY PO 08/25/16 09:00 UNV (Lasix Inj) 40 mg BID IV PUSH 08/25/16 09:00 UNV (Lasix Inj) 40 mg ONCE ONCE IV PUSH 08/24/16 14:45 08/24/16 14:46 UNV (Cardizem Cd) 180 mg DAILY PO 08/25/16 09:00 UNV (KCl) 10 meq Q12HR PO 08/24/16 21:00 UNV Vital Signs / I&O Vital Signs Date Time Temp Pulse Resp B/P Pulse Ox O2 Delivery O2 Flow Rate FiO2 08/24/16 14:15 87 08/24/16 12:45 90 Nasal Cannula 2.00 08/24/16 12:45 87 08/24/16 11:00 84 22 112/76 94 08/24/16 10:00 88 26 104/63 94 08/24/16 10:00 88 08/24/16 09:00 106 26 128/97 92 08/24/16 08:00 90 08/24/16 08:00 94 Nasal Cannula 2.00 08/24/16 08:00 97.3 90 23 132/86 94 08/24/16 07:51 94 Nasal Cannula 3.00 08/24/16 07:00 92 22 114/91 94 08/24/16 06:00 96 24 126/81 94 08/24/16 06:00 96 08/24/16 05:00 90 22 116/81 95 08/24/16 04:07 95 Nasal Cannula 3.00 08/24/16 04:06 98 08/24/16 04:00 97.5 94 22 107/81 95 08/24/16 03:00 88 22 116/76 95 08/24/16 02:00 90 22 108/75 95 08/24/16 02:00 90 08/24/16 01:00 96 22 107/81 95 08/24/16 00:04 92 Nasal Cannula 3.00 08/24/16 00:04 98.2 97 22 106/78 92 08/24/16 00:00 98 08/23/16 23:00 96 22 119/90 95 08/23/16 22:00 94 08/23/16 22:00 94 30 110/80 93 08/23/16 21:00 96 31 96/74 92 08/23/16 20:11 111 08/23/16 20:03 93 Nasal Cannula 2.00 08/23/16 20:00 98.2 104 27 99/81 93 08/23/16 19:30 92 Nasal Cannula 2.00 08/23/16 19:00 102 26 98/68 93 08/23/16 18:34 112 08/23/16 18:00 112 27 109/85 93 08/23/16 17:00 96 26 109/82 93 08/23/16 16:05 93 Nasal Cannula 2.00 08/23/16 16:05 90 08/23/16 16:01 97.4 102 34 119/82 93 08/23/16 15:01 92 29 108/78 93 I/O 08/23/16 08/23/16 08/23/16 08/24/16 08/24/16 08/24/16 07:00 15:00 23:00 07:00 15:00 23:00 Intake Total 300 ml 820 ml 520 ml 200 ml 550 ml Output Total 500 ml 750 ml 350 ml 950 ml 1825 ml Balance -200 ml 70 ml 170 ml -750 ml -1275 ml Intake Oral 200 ml 720 ml 420 ml 100 ml 550 ml IV Total 100 ml 100 ml 100 ml 100 ml Output Urine Total 500 ml 750 ml 350 ml 950 ml 1825 ml # Voids 1 2 1 2 # Bowel Movements 0 2 0 0 Physical Exam Severely obese, No acute distress Neck: can't see neck veins well Chest: absent breath sounds right base CV: S1S2 irr irr, no longer tachycardic Ext: severe LE edema Laboratory Laboratory Tests Test 08/24/16 05:50 Sodium Level 141 MEQ/L Potassium Level 3.9 MEQ/L Chloride Level 105 MEQ/L Carbon Dioxide Level 29.3 MEQ/L Anion Gap 7 MEQ/L Blood Urea Nitrogen 30 MG/DL Creatinine 1.10 MG/DL Estimat Glomerular Filtration 68 ML/MIN Rate Random Glucose 93 MG/DL Calcium Level 8.2 MG/DL Imaging Last 48 hours Impressions Renal Ultrasound 08/23/16 0000 Signed Impressions: Service Date/Time: Tuesday, August 23, 2016 12:18 - CONCLUSION: 1. The kidneys appear adequate in size and echotexture. There are no findings to indicate renal obstruction. 2. Bilateral pleural effusions. Hero Chavarria MD Assessment and Plan Problem List: (1) Acute systolic CHF (congestive heart failure) Assessment and Plan: Very fluid overloaded. Creatinine has normalized. Increase furosemide to 40mg IVP bid (2) Left ventricular systolic dysfunction Assessment and Plan: Might consider adding ACEI depending on renal response to increased diuretic (3) Atrial fibrillation with RVR Assessment and Plan: Stable now after 0.75mg IV dig load, Dilt 180 daily, metoprolol 50 daily. Change enoxaparin to Eliquis Assessment and Plan OK to transfer out of ICU today or tomorrow Ean Small MD Aug 24, 2016 14:41
[2016-08-24] MEDS ORDERED: FUROSEMIDE 40 MG/4 ML VIAL IV PUSH ONE (14:45)
[2016-08-24] MEDS: APIXABAN 5 MG TABLET PO SCH (21:28)
[2016-08-24] MEDS: POTASSIUM CHLORIDE 10 MEQ CONTROLLED RELEASE TAB PO SCH (21:29)
[2016-08-25] VITALS (11 sets, daily range): BP systolic 86–128; BP diastolic 66–96; PULSE 76–96; RESP 22–29; TEMP 97.6–98; O2SAT 91–95
[2016-08-25] MEDS: CHLORHEXIDINE GLUCONATE 2 % 1 PACK (2 CLOTHS)(taper/protocol) TOP SCH (04:00)
[2016-08-25] MEDS: NS IV SCH ×2 (04:30)
[2016-08-25] MEDS: CEFTAROLINE IV SCH ×2 (04:30)
[2016-08-25 05:32] LABS: BICARBONATE 35.3 MEQ/L (21.0-32.0)
[2016-08-25] MEDS: DILTIAZEM HCL 60 MG TAB PO SCH (06:32)
[2016-08-25 06:40] LABS: DIGOXIN 0.9 NG/ML (0.8-2.0)
--- NOTE | 2016-08-25 08:09 | PD.CARD.PN ---
Subjective Subjective Remarks Pt feeling better, still slightly hypoxic and tachy w/ ambulation Objective Medications Administered Medications Medications (Trade) Dose Ordered Sig/Rosendo Route PRN Reason Start Time Stop Time Status Last Admin Dose Admin Miscellaneous Information Patient in critical care unit? Ass... Q361D XX 08/21/16 08:30 08/21/16 08:30 Chlorhexidine Gluconate (Chlorhexidine 2% Cloth) 3 pack DAILY@04 TOP 08/22/16 04:00 08/26/16 04:01 08/25/16 04:00 IV Flush (NS Flush) 2 ml BID IV FLUSH 08/21/16 09:15 08/24/16 21:33 Metoprolol Tartrate (Lopressor) 25 mg Q12HR PO 08/21/16 21:00 08/24/16 21:33 Mupirocin 1 applic 1 applic BID NASAL 08/21/16 21:00 08/26/16 09:01 08/24/16 21:29 Ceftaroline Fosamil/Sodium Chloride (Teflaro Inj/NS Inj) 100 ml @ 100 mls/hr Q12H IV 08/23/16 16:00 08/25/16 04:30 Potassium Chloride (KCl) 10 meq Q12HR PO 08/24/16 21:00 08/24/16 21:29 Apixaban (Eliquis) 5 mg BID PO 08/24/16 21:00 08/24/16 21:28 Vital Signs / I&O Vital Signs Date Time Temp Pulse Resp B/P Pulse Ox O2 Delivery O2 Flow Rate FiO2 08/25/16 06:35 96 22 128/95 92 08/25/16 04:00 92 Nasal Cannula 2.00 08/25/16 04:00 98.0 90 25 116/90 92 08/25/16 04:00 90 08/25/16 00:00 97.8 80 25 120/87 94 08/25/16 00:00 80 08/25/16 00:00 86 Room Air 08/24/16 20:15 95 Nasal Cannula 2.00 08/24/16 20:00 92 08/24/16 20:00 98.0 87 25 94 08/24/16 20:00 92 Nasal Cannula 2.00 08/24/16 19:35 96 24 129/82 94 08/24/16 19:30 96 24 140/82 94 08/24/16 19:00 96 25 112/75 84 08/24/16 19:00 80 Room Air 08/24/16 17:09 98.0 93 24 111/89 93 08/24/16 16:45 94 Nasal Cannula 1.00 08/24/16 16:45 82 08/24/16 15:00 76 25 110/85 94 08/24/16 14:15 87 08/24/16 12:45 90 Nasal Cannula 2.00 08/24/16 12:45 87 08/24/16 11:00 84 22 112/76 94 08/24/16 10:00 88 26 104/63 94 08/24/16 10:00 88 08/24/16 09:00 106 26 128/97 92 I/O 08/24/16 08/24/16 08/24/16 08/25/16 08/25/16 08/25/16 07:00 15:00 23:00 07:00 15:00 23:00 Intake Total 200 ml 550 ml 440 ml 320 ml Output Total 950 ml 1825 ml 2300 ml 1350 ml Balance -750 ml -1275 ml -1860 ml -1030 ml Intake Oral 100 ml 550 ml 320 ml 320 ml IV Total 100 ml 120 ml Output Urine Total 950 ml 1825 ml 2300 ml 1350 ml # Voids 2 3 3 # Bowel Movements 0 0 Physical Exam GENERAL: This is a well-nourished, well-developed patient, in no apparent distress. CARDIOVASCULAR: Regular rate and irregular rhythm without murmurs, gallops, or rubs. RESPIRATORY: Clear to auscultation. Breath sounds equal bilaterally. No wheezes , rales, or rhonchi. GASTROINTESTINAL: Abdomen soft, non-tender, nondistended. Normal, active bowel sounds MUSCULOSKELETAL: Extremities without clubbing, cyanosis, or edema. NEURO: Alert & Oriented x4 to person, place, time, situation. Moves all ext x4 Laboratory Laboratory Tests Test 08/25/16 04:40 Sodium Level 142 MEQ/L Potassium Level 5.0 MEQ/L Chloride Level 102 MEQ/L Carbon Dioxide Level 35.3 MEQ/L Anion Gap 5 MEQ/L Blood Urea Nitrogen 20 MG/DL Creatinine 1.20 MG/DL Estimat Glomerular Filtration 62 ML/MIN Rate Random Glucose 101 MG/DL Calcium Level 8.6 MG/DL Digoxin Level 0.9 NG/ML Imaging Last Impressions Renal Ultrasound 08/23/16 0000 Signed Impressions: Service Date/Time: Tuesday, August 23, 2016 12:18 - CONCLUSION: 1. The kidneys appear adequate in size and echotexture. There are no findings to indicate renal obstruction. 2. Bilateral pleural effusions. Hero Chavarria MD Chest X-Ray 08/21/16 0033 Signed Impressions: Service Date/Time: July 00:56 - CONCLUSION: Bilateral effusions and consolidation suspect right greater than left. Cardiomegaly. Garrett Davis MD Assessment and Plan Problem List: (1) Acute systolic CHF (congestive heart failure) Assessment and Plan: Diuresed a lot and cr bumped up slightly, will go to PO lasix (2) Left ventricular systolic dysfunction Assessment and Plan: started entresto (low dose), changed metoprolol to coreg. (3) Atrial fibrillation with RVR Assessment and Plan: added eliquis, changed bb to coreg, stopped dig for now, but may need to add back later, will try to rate control w/ BB given low LVEF. Caden Marrero MD Aug 25, 2016 08:09
[2016-08-25] MEDS ORDERED: DIGOXIN 0.25 MG TAB PO SCH (09:00)
[2016-08-25] MEDS ORDERED: FUROSEMIDE 20 MG/2 ML VIAL IV PUSH SCH (09:00)
[2016-08-25] MEDS ORDERED: APIXABAN 5 MG TABLET PO SCH (09:00)
--- NOTE | 2016-08-25 09:10 | HHI.PR ---
Subjective Remarks Follow-up for A. fib, CHF, bilateral lower extremity cellulitis. Patient denies any chest pain or shortness of breath. RN states that when the patient got up to use bathroom his O2 came off and his saturation dropped to 84% on room air, but with 2 L came up to 93-94%. She states the patient was at 92% when walking with oxygen. She states his HR is 110-120 with activity. She states he diuresed 4 L yesterday and the patient admits to having significant urine output. Objective Vitals Vital Signs Date Time Temp Pulse Resp B/P Pulse Ox O2 Delivery O2 Flow Rate FiO2 08/25/16 06:35 96 22 128/95 92 08/25/16 04:00 92 Nasal Cannula 2.00 08/25/16 04:00 98.0 90 25 116/90 92 08/25/16 04:00 90 08/25/16 00:00 97.8 80 25 120/87 94 08/25/16 00:00 80 08/25/16 00:00 86 Room Air 08/24/16 20:15 95 Nasal Cannula 2.00 08/24/16 20:00 92 08/24/16 20:00 98.0 87 25 94 08/24/16 20:00 92 Nasal Cannula 2.00 08/24/16 19:35 96 24 129/82 94 08/24/16 19:30 96 24 140/82 94 08/24/16 19:00 96 25 112/75 84 08/24/16 19:00 80 Room Air 08/24/16 17:09 98.0 93 24 111/89 93 08/24/16 16:45 94 Nasal Cannula 1.00 08/24/16 16:45 82 08/24/16 15:00 76 25 110/85 94 08/24/16 14:15 87 08/24/16 12:45 90 Nasal Cannula 2.00 08/24/16 12:45 87 08/24/16 11:00 84 22 112/76 94 08/24/16 10:00 88 26 104/63 94 08/24/16 10:00 88 I/O 08/24/16 08/24/16 08/24/16 08/25/16 08/25/16 08/25/16 07:00 15:00 23:00 07:00 15:00 23:00 Intake Total 200 ml 550 ml 440 ml 320 ml Output Total 950 ml 1825 ml 2300 ml 1350 ml Balance -750 ml -1275 ml -1860 ml -1030 ml Intake Oral 100 ml 550 ml 320 ml 320 ml IV Total 100 ml 120 ml Output Urine Total 950 ml 1825 ml 2300 ml 1350 ml # Voids 2 3 3 # Bowel Movements 0 0 Result Diagram: 08/23/16 0558 08/25/16 0440 Objective Remarks GENERAL: Well-nourished, well-developed patient in no apparent distress. SKIN: Erythema over bilateral lower legs appears less bright. HEAD: Atraumatic. Normocephalic. CARDIOVASCULAR: Tachycardic with irregularly irregular rhythm. RESPIRATORY: CTAB. GASTROINTESTINAL: NABS. MUSCULOSKELETAL: Bilateral lower extremity edema appears mildly improved. NEUROLOGICAL: Awake and alert. Normal speech. PSYCHIATRIC: Appropriate mood and affect; insight and judgment normal. Urinary Catheter: No Vascular Central Line Catheter: No A/P Problem List: (1) Atrial fibrillation with RVR ICD Code: I48.91 Status: Acute (2) CHF (congestive heart failure) ICD Code: I50.9 Status: Acute (3) Lower extremity cellulitis ICD Code: L03.119 Status: Acute (4) Hyperkalemia ICD Code: E87.5 Status: Resolved (5) Acute renal failure ICD Code: N17.9 Status: Acute (6) Leukocytosis ICD Code: D72.829 Status: Acute Assessment and Plan 61-year-old male with: A. fib RVR: EKG with A. fib RVR rate 191 with no evidence of ischemia. Troponin 0.03. TSH normal. Patient initially received a 34 mg bolus of IV Cardizem followed by a 47 mg bolus as well as 0.25 mg of digoxin in the ED. Also received 162 mg of aspirin. Patient denies any chest pain. -S/p Cardizem drip -HR improved -Cardiology consultation appreciated, following IV Lasix was discontinued and patient was started on 20 mg by mouth Lasix daily with KCl supplementation. Started on low-dose Entresto. Metoprolol changed to Coreg Digoxin stopped for now Lovenox stopped. Started on Eliquis 5 mg by mouth twice a day. -Monitor vitals and telemetry CHF: Patient with significant shortness of breath. Chest x-ray with bilateral pleural effusions and B/L consolidations greater on the right than left BNP of 430. -Echo shows EF of 25-30% with mild mitral valve regurgitation and mild to moderate tricuspid valve regurgitation -Continue O2 as needed; IS; walk test as patient will likely need O2 at home. -Continue Lasix -Monitor I's & O's. Significant urine output of 5475 mL over the past 24 hours. -PO fluid restriction 1500 mL -Appreciate cardiology consultation as above. -Silk Washing Machine Operator consulted for education regarding diet, pending. Acute renal failure: Could be attributed to diuresis or antibiotics. Improved. Cr 2.4-->1.10-->1.20. BUN improved at 20. -Nephrology consultation appreciated, following. Per nephrology, likely cardiorenal syndrome. -30 protein on UA -Renal ultrasound negative aside from B/L pleural effusions noted -Nephrology to follow PILAR, ANC, and complement studies. -Lasix was decreased. -Avoid nephrotoxins -Monitor renal function Hyperkalemia: Resolved. Attributed to acute renal failure. Potassium 5.8-->3.9 status post 10 units of insulin, 1 g calcium gluconate, 50 mL Dextrose, and 45 g of Kayexalate. Mg normal. -K+ increased to 5.0 today. -Monitor telemetry -Recheck am BMP Bilateral LE cellulitis: Patient with history of peripheral vascular disease per EMR. Afebrile. White blood cell count improved 12.6-->6.5. -Patient received 3 doses of doxycycline but the had acute renal failure. Doxycycline was discontinued. -Clindamycin was started, but ID evaluated patient yesterday, and patient was started on Teflaro. -Patient now improving. ID discontinued Teflaro and started Cefuroxime 500 mg po bid, continue. DVT prevention: On Eliquis. Written by Bibiana Galindo PA-C acting as scribe for Dr. Martinez on 08/25/16 at 0850. All or portions of this note were transcribed by beto Galindo PA-C. I , Dr. Jason Martinez personally performed the history, physical exam, and medical decision making; and confirmed the accuracy of the information in the transcribed note. Authenticated by Dr. Jason Martinez on 08/25/16 at 15:01. Problem Qualifiers (1) Lower extremity cellulitis: Qualified Code: L03.119 - Cellulitis of lower extremity, unspecified laterality (2) Acute renal failure: Qualified Code: N17.9 - Acute renal failure, unspecified acute renal failure type Bibiana Galindo Aug 25, 2016 09:10 Jason Martinez MD Aug 25, 2016 15:02
[2016-08-25] MEDS: SODIUM CHLORIDE 0.9% FLUSH 5 ML FLUSH IV FLUSH SCH ×2 (09:22→21:00)
[2016-08-25] MEDS: MUPIROCIN 2% OINT 1 APPLIC/GM SYR NASAL SCH ×2 (09:22→20:23)
[2016-08-25] MEDS: APIXABAN 5 MG TABLET PO SCH ×2 (09:23→20:23)
[2016-08-25] MEDS: SACUBITRIL/VALSARTAN 24 MG-26 MG TAB PO SCH ×2 (09:23→20:24)
[2016-08-25] MEDS: POTASSIUM CHLORIDE 10 MEQ CONTROLLED RELEASE TAB PO SCH ×2 (09:23→20:24)
[2016-08-25] MEDS: FUROSEMIDE 20 MG TAB PO SCH (09:23)
[2016-08-25] MEDS: CARVEDILOL 12.5 MG TAB PO SCH ×2 (09:23→20:23)
[2016-08-25] MEDS: DILTIAZEM-CD 180 MG CAP ER PO SCH (09:23)
--- NOTE | 2016-08-25 10:04 | HHI.IDPN ---
Subjective Subjective Remarks Sitting up in chair Feels better Breathing better Swelling of legs better No pain in legs No fevers Antibiotics Ceftaroline Lines Peripheral IV line Past Medical History Peripheral vascular disease Hypertension Past Surgical History Veins removed from left leg. Allergies: Coded Allergies: *MDRO Multi-Drug Resistant Organism (Verified Adverse Reaction, Unknown, ) MRSA PCR Screen POSITIVE -08/21/16 Review of Systems Constitutional Constitutional Remarks No fever chills Objective . Vital Signs Date Time Temp Pulse Resp B/P Pulse Ox O2 Delivery O2 Flow Rate FiO2 08/25/16 09:22 93 Nasal Cannula 2.00 08/25/16 08:30 94 08/25/16 08:30 97.6 94 24 124/96 94 08/25/16 08:30 94 Nasal Cannula 2.00 08/25/16 06:35 96 22 128/95 92 08/25/16 04:00 92 Nasal Cannula 2.00 08/25/16 04:00 98.0 90 25 116/90 92 08/25/16 04:00 90 08/25/16 00:00 97.8 80 25 120/87 94 08/25/16 00:00 80 08/25/16 00:00 86 Room Air 08/24/16 20:15 95 Nasal Cannula 2.00 08/24/16 20:00 92 08/24/16 20:00 98.0 87 25 94 08/24/16 20:00 92 Nasal Cannula 2.00 08/24/16 19:35 96 24 129/82 94 08/24/16 19:30 96 24 140/82 94 08/24/16 19:00 96 25 112/75 84 08/24/16 19:00 80 Room Air 08/24/16 17:09 98.0 93 24 111/89 93 08/24/16 16:45 94 Nasal Cannula 1.00 08/24/16 16:45 82 08/24/16 15:00 76 25 110/85 94 08/24/16 14:15 87 08/24/16 12:45 90 Nasal Cannula 2.00 08/24/16 12:45 87 08/24/16 11:00 84 22 112/76 94 08/24/16 08/24/16 08/25/16 15:00 23:00 07:00 Intake Total 550 ml 440 ml 320 ml Output Total 1825 ml 2300 ml 1350 ml Balance -1275 ml -1860 ml -1030 ml Intake Oral 550 ml 320 ml 320 ml IV Total 120 ml Output Urine Total 1825 ml 2300 ml 1350 ml # Voids 3 3 # Bowel Movements 0 . Laboratory Tests Test 08/24/16 08/25/16 05:50 04:40 Sodium Level 141 MEQ/L 142 MEQ/L Potassium Level 3.9 MEQ/L 5.0 MEQ/L Chloride Level 105 MEQ/L 102 MEQ/L Carbon Dioxide Level 29.3 MEQ/L 35.3 MEQ/L Anion Gap 7 MEQ/L 5 MEQ/L Blood Urea Nitrogen 30 MG/DL 20 MG/DL Creatinine 1.10 MG/DL 1.20 MG/DL Estimat Glomerular Filtration 68 ML/MIN 62 ML/MIN Rate Random Glucose 93 MG/DL 101 MG/DL Calcium Level 8.2 MG/DL 8.6 MG/DL Physical Exam GENERAL: This is an obese patient, in no apparent distress. SKIN: Bilateral lower extremities with chronic venous changes and resolving erythema. HEAD: Atraumatic. Normocephalic. No temporal or scalp tenderness. EYES: Pupils equal round and reactive. Extraocular motions intact. No scleral icterus. No injection or drainage. ENT: Nose without bleeding, purulent drainage or septal hematoma. Throat without erythema, tonsillar hypertrophy or exudate. Uvula midline. Airway patent. NECK: Trachea midline. No JVD or lymphadenopathy. Supple, nontender, no meningeal signs. CARDIOVASCULAR: Regular rate and rhythm without murmurs, gallops, or rubs. RESPIRATORY: Clear to auscultation. Breath sounds equal bilaterally. No wheezes , rales, or rhonchi. GASTROINTESTINAL: Abdomen soft, non-tender, nondistended. No hepato-splenomegaly , or palpable masses. No guarding. MUSCULOSKELETAL: Extremities without clubbing, cyanosis. No joint tenderness, effusion, noted. No calf tenderness. Negative Homans sign bilaterally. Resolving cellulitis NEUROLOGICAL: Awake and alert. Cranial nerves II through XII intact. Motor and sensory grossly within normal limits. Five out of 5 muscle strength in all muscle groups. Normal speech Assessment & Plan Diagnosis: (1) Lower extremity cellulitis Plan: Blood cultures negative Clinically improved Stop Teflaro Start Cefuroxime 500 mg po bid (2) Acute systolic CHF (congestive heart failure) Problem Qualifiers (1) Lower extremity cellulitis: Qualified Code: L03.119 - Cellulitis of lower extremity, unspecified laterality Lotus Bolanos MD Aug 25, 2016 10:04
--- NOTE | 2016-08-25 14:37 | RADHPO ---
EXAM DATE/TIME: 08/25/2016 13:32 [facility] COMPARISON: No previous studies available for comparison. INDICATIONS : Short of breath. MEDICAL HISTORY : None. SURGICAL HISTORY : None. ENCOUNTER: Subsequent ACUITY: 4 - 6 days PAIN SCORE: 0/10 LOCATION: Bilateral chest FINDINGS: Lungs are underaerated. Mild bibasilar parenchymal changes are noted with minimal inte rstitial prominence. On the lateral x-ray there are small bilateral pleural effusions evident. CONCLUSION: 1. Small bilateral pleural effusions. 2. Compensated cardiomegaly. Rj Chavarria MD FACR on August 25, 2016 at 14:33 Board Certified Radiologist. This report was verified electronically.
[2016-08-25] MEDS ORDERED: INFLUENZA VIRUS VACCINE (QUADRIVALENT) 0.5 ML SYR IM ONE (15:00)
--- NOTE | 2016-08-25 15:55 | HHI.NPPN ---
Subjective History of Present Illness 61-year-old male with past medical history of hypertension and atrial fibrillation, congestive heart failure, peripheral vascular disease who was admitted with shortness of breath and swelling of the legs. I was called to see the patient because of increase in the creatinine and potassium. The patient has creatinine of 1.3 on admission. Additional Remarks Patient is alert, sitting on chair, breathing is better, appetite improving. Review of Systems General Constitutional: Fatigue Respiratory Lungs: SOB, Sputum, Wheeze Cardiovascular Cardiac: Edema, SUTTON Objective Data Data 08/24/16 08/25/16 19:00 07:00 Intake Total 990 ml 320 ml Output Total 4125 ml 1350 ml Balance -3135 ml -1030 ml Intake Oral 870 ml 320 ml IV Total 120 ml Output Urine Total 4125 ml 1350 ml # Voids 3 3 # Bowel Movements 0 Vital Signs Date Time Temp Pulse Resp B/P Pulse Ox O2 Delivery O2 Flow Rate FiO2 08/25/16 12:33 93 Nasal Cannula 2.00 Humidified 08/25/16 12:33 76 08/25/16 12:14 97.9 84 28 107/75 91 08/25/16 12:12 84 29 86/73 93 08/25/16 09:22 93 Nasal Cannula 2.00 08/25/16 08:30 94 08/25/16 08:30 97.6 94 24 124/96 94 08/25/16 08:30 94 Nasal Cannula 2.00 08/25/16 06:35 96 22 128/95 92 08/25/16 04:00 92 Nasal Cannula 2.00 08/25/16 04:00 98.0 90 25 116/90 92 08/25/16 04:00 90 08/25/16 00:00 97.8 80 25 120/87 94 08/25/16 00:00 80 08/25/16 00:00 86 Room Air 08/24/16 20:15 95 Nasal Cannula 2.00 08/24/16 20:00 92 08/24/16 20:00 98.0 87 25 94 08/24/16 20:00 92 Nasal Cannula 2.00 08/24/16 19:35 96 24 129/82 94 08/24/16 19:30 96 24 140/82 94 08/24/16 19:00 96 25 112/75 84 08/24/16 19:00 80 Room Air 08/24/16 17:09 98.0 93 24 111/89 93 08/24/16 16:45 94 Nasal Cannula 1.00 08/24/16 16:45 82 -: 08/23/16 0558 08/25/16 0440 Physical Exam General Appearance: No Acute Distress, Comfortable Throat Throat Exam: Oral Mucosa [place] & Moist Neck Neck Exam: Neck Supple Pulmonary Resp Exam: Breath Sounds Equal, No Distress, Rhonchi, Decreased Bases, Diminished Breath Sounds Cardiology CV Exam: Arrhythmia Gastrointestinal/Abdomen GI Exam: Soft, Non-Tender, Bowel Sounds Present Extremeties Extremities Exam: Moderate Edema, Pitting Edema Neurologic Neuro Exam: Alert, Awake, Oriented Psychiatric Psych Exam: Appropriate Responses Assessment/Plan Problem List: (1) Acute renal failure (2) Lower extremity cellulitis Plan: diurese (3) CHF (congestive heart failure) Plan: on lasix EF 25% (4) Atrial fibrillation with RVR Plan: Cardiology following Plan Creatinine is now 1.2, stable. Lasix changed to PO. Has TERRIE, possibly cardio renal. Problem Qualifiers (1) Acute renal failure: Qualified Code: N17.9 - Acute renal failure, unspecified acute renal failure type (2) Lower extremity cellulitis: Qualified Code: L03.119 - Cellulitis of lower extremity, unspecified laterality (3) CHF (congestive heart failure): Deny Milligan MD Aug 25, 2016 15:55
[2016-08-25] MEDS: CEFUROXIME AXETIL 500 MG TAB PO SCH (20:23)
[2016-08-26] VITALS (55 sets, daily range): BP systolic 92–137; BP diastolic 75–98; PULSE 92–152; RESP 22–36; TEMP 97.6–98.5; O2SAT 91–95
[2016-08-26] MEDS: CHLORHEXIDINE GLUCONATE 2 % 1 PACK (2 CLOTHS)(taper/protocol) TOP SCH (04:00)
--- NOTE | 2016-08-26 07:59 | PD.CARD.PN ---
Subjective Subjective Remarks Rates a bit rapid this am, no cp/sob Objective Medications Administered Medications Medications (Trade) Dose Ordered Sig/Rosendo Route PRN Reason Start Time Stop Time Status Last Admin Dose Admin Miscellaneous Information Patient in critical care unit? Ass... Q361D XX 08/21/16 08:30 08/21/16 08:30 IV Flush (NS Flush) 2 ml BID IV FLUSH 08/21/16 09:15 08/25/16 21:00 Mupirocin (Bactroban Nasal 2% Oint) 1 applic BID NASAL 08/21/16 21:00 08/26/16 09:01 08/25/16 20:23 Diltiazem HCl (Cardizem Cd) 180 mg DAILY PO 08/25/16 09:00 08/25/16 09:23 Potassium Chloride (KCl) 10 meq Q12HR PO 08/24/16 21:00 08/25/16 20:24 Apixaban (Eliquis) 5 mg BID PO 08/24/16 21:00 08/25/16 20:23 Sacubitril/ Valsartan (Entresto 24-26 Mg) 1 tab BID PO 08/25/16 09:00 08/25/16 20:24 Furosemide (Lasix) 20 mg DAILY PO 08/25/16 09:00 08/25/16 09:23 Cefuroxime Axetil (Ceftin) 500 mg Q12HR PO 08/25/16 21:00 08/25/16 20:23 Vital Signs / I&O Vital Signs Date Time Temp Pulse Resp B/P Pulse Ox O2 Delivery O2 Flow Rate FiO2 08/26/16 04:00 94 Nasal Cannula 4.00 Humidified 08/26/16 04:00 92 08/26/16 04:00 97.6 92 22 137/98 94 08/26/16 00:00 98.0 110 26 127/95 93 08/26/16 00:00 110 08/26/16 00:00 93 Nasal Cannula 4.00 Humidified 08/25/16 23:25 88 Nasal Cannula 4.00 08/25/16 20:00 94 Nasal Cannula 2.00 Humidified 08/25/16 20:00 97.8 95 26 119/87 94 08/25/16 20:00 95 08/25/16 19:10 93 Nasal Cannula 2.00 08/25/16 16:00 97.7 82 26 122/66 95 08/25/16 16:00 87 08/25/16 16:00 94 Nasal Cannula 2.00 Humidified 08/25/16 12:33 93 Nasal Cannula 2.00 Humidified 08/25/16 12:33 76 08/25/16 12:14 97.9 84 28 107/75 91 08/25/16 12:12 84 29 86/73 93 08/25/16 09:22 93 Nasal Cannula 2.00 08/25/16 08:30 94 08/25/16 08:30 97.6 94 24 124/96 94 08/25/16 08:30 94 Nasal Cannula 2.00 I/O 08/25/16 08/25/16 08/25/16 08/26/16 08/26/16 08/26/16 07:00 15:00 23:00 07:00 15:00 23:00 Intake Total 320 ml 560 ml 480 ml 240 ml Output Total 1350 ml 1650 ml 1400 ml 1000 ml Balance -1030 ml -1090 ml -920 ml -760 ml Intake Oral 320 ml 560 ml 480 ml 240 ml Output Urine Total 1350 ml 1650 ml 1400 ml 1000 ml # Voids 3 3 # Bowel Movements 0 0 0 1 Physical Exam GENERAL: This is a well-nourished, well-developed patient, in no apparent distress. CARDIOVASCULAR: slightly rapid rate and irregular rhythm without murmurs, gallops, or rubs. RESPIRATORY: Clear to auscultation. Breath sounds equal bilaterally. No wheezes , rales, or rhonchi. GASTROINTESTINAL: Abdomen soft, non-tender, nondistended. Normal, active bowel sounds MUSCULOSKELETAL: Extremities without clubbing, cyanosis, or edema. NEURO: Alert & Oriented x4 to person, place, time, situation. Moves all ext x4 Imaging Last Impressions Chest X-Ray 08/25/16 0000 Signed Impressions: Service Date/Time: Thursday, August 25, 2016 13:32 - CONCLUSION: 1. Small bilateral pleural effusions. 2. Compensated cardiomegaly. Rj Chavarria MD FACR Renal Ultrasound 08/23/16 0000 Signed Impressions: Service Date/Time: Tuesday, August 23, 2016 12:18 - CONCLUSION: 1. The kidneys appear adequate in size and echotexture. There are no findings to indicate renal obstruction. 2. Bilateral pleural effusions. Hero Chavarria MD Assessment and Plan Problem List: (1) Acute systolic CHF (congestive heart failure) Assessment and Plan: currently compensated (2) Left ventricular systolic dysfunction Assessment and Plan: started entresto (low dose), changed metoprolol to coreg; will get a nuclear stress test today; (3) Atrial fibrillation with RVR Assessment and Plan: increased coreg to 25mg bid. (4) Cardiomyopathy Assessment and Plan: Likely NICM, for nuc stress today; discussed life-vest, he is considering, on bb/Caden Leon MD Aug 26, 2016 07:59
[2016-08-26] MEDS: SACUBITRIL/VALSARTAN 24 MG-26 MG TAB PO SCH ×2 (08:35→20:19)
[2016-08-26] MEDS: SODIUM CHLORIDE 0.9% FLUSH 5 ML FLUSH IV FLUSH SCH ×2 (08:35→20:20)
[2016-08-26] MEDS: CEFUROXIME AXETIL 500 MG TAB PO SCH ×2 (08:36→20:21)
[2016-08-26] MEDS: POTASSIUM CHLORIDE 10 MEQ CONTROLLED RELEASE TAB PO SCH ×2 (08:36→20:20)
[2016-08-26] MEDS: DILTIAZEM-CD 180 MG CAP ER PO SCH (08:36)
[2016-08-26] MEDS: FUROSEMIDE 20 MG TAB PO SCH (08:36)
[2016-08-26] MEDS: APIXABAN 5 MG TABLET PO SCH ×2 (08:37→20:19)
[2016-08-26] MEDS: MUPIROCIN 2% OINT 1 APPLIC/GM SYR NASAL SCH (08:37)
[2016-08-26] MEDS: CARVEDILOL 12.5 MG TAB PO SCH ×2 (08:37→20:19)
[2016-08-26] MEDS ORDERED: REGADENOSON INJ 0.4 MG/5 ML SYR IV ONE (11:34)
--- NOTE | 2016-08-26 16:06 | HHI.NPPN ---
Subjective History of Present Illness 61-year-old male with past medical history of hypertension and atrial fibrillation, congestive heart failure, peripheral vascular disease who was admitted with shortness of breath and swelling of the legs. I was called to see the patient because of increase in the creatinine and potassium. The patient has creatinine of 1.3 on admission. Additional Remarks Patient is alert, clinically same, sitting on chair, no SOB, with nasal cannula. Review of Systems General Constitutional: Fatigue Respiratory Lungs: SOB, Sputum, Wheeze Cardiovascular Cardiac: Edema, SUTTON Objective Data Data 08/25/16 08/26/16 19:00 07:00 Intake Total 560 ml 720 ml Output Total 1650 ml 2400 ml Balance -1090 ml -1680 ml Intake Oral 560 ml 720 ml Output Urine Total 1650 ml 2400 ml # Voids 3 # Bowel Movements 0 1 Vital Signs Date Time Temp Pulse Resp B/P Pulse Ox O2 Delivery O2 Flow Rate FiO2 08/26/16 13:00 102 28 08/26/16 13:00 102 28 08/26/16 12:45 116 30 08/26/16 12:30 122 33 08/26/16 12:00 97.8 110 28 93 08/26/16 12:00 110 28 08/26/16 12:00 94 Nasal Cannula 2.00 Humidified 08/26/16 12:00 110 08/26/16 11:53 108 25 107/77 08/26/16 10:30 100 25 08/26/16 10:00 106 27 08/26/16 09:30 114 26 08/26/16 09:00 114 24 08/26/16 08:00 128 30 08/26/16 08:00 110 08/26/16 08:00 95 Nasal Cannula 2.00 08/26/16 08:00 93 Nasal Cannula 2.00 Humidified 08/26/16 08:00 97.7 08/26/16 07:49 124 29 129/93 93 08/26/16 07:45 120 25 94 08/26/16 07:30 152 26 94 08/26/16 07:15 138 24 94 08/26/16 07:00 108 25 95 08/26/16 04:00 94 Nasal Cannula 4.00 Humidified 08/26/16 04:00 92 08/26/16 04:00 97.6 92 22 137/98 94 08/26/16 00:00 98.0 110 26 127/95 93 08/26/16 00:00 110 08/26/16 00:00 93 Nasal Cannula 4.00 Humidified 08/25/16 23:25 88 Nasal Cannula 4.00 08/25/16 20:00 94 Nasal Cannula 2.00 Humidified 08/25/16 20:00 97.8 95 26 119/87 94 08/25/16 20:00 95 08/25/16 19:10 93 Nasal Cannula 2.00 -: 08/23/16 0558 08/25/16 0440 Physical Exam General Appearance: No Acute Distress, Comfortable Throat Throat Exam: Oral Mucosa [employer] & Moist Neck Neck Exam: Neck Supple Pulmonary Resp Exam: Breath Sounds Equal, No Distress, Rhonchi, Decreased Bases, Diminished Breath Sounds Cardiology CV Exam: Arrhythmia Gastrointestinal/Abdomen GI Exam: Soft, Non-Tender, Bowel Sounds Present Extremeties Extremities Exam: Moderate Edema, Pitting Edema Neurologic Neuro Exam: Alert, Awake, Oriented Psychiatric Psych Exam: Appropriate Responses Assessment/Plan Problem List: (1) Acute renal failure (2) Lower extremity cellulitis Plan: diurese (3) CHF (congestive heart failure) Plan: on lasix EF 25% (4) Atrial fibrillation with RVR Plan: Cardiology following Plan Creatinine is now 1.2, stable. Lasix changed to PO. Has TERRIE, possibly cardio renal. No new BMP, check in AM. Told to restrict oral fluids. Problem Qualifiers (1) Acute renal failure: Qualified Code: N17.9 - Acute renal failure, unspecified acute renal failure type (2) Lower extremity cellulitis: Qualified Code: L03.119 - Cellulitis of lower extremity, unspecified laterality (3) CHF (congestive heart failure): Deny Milligan MD Aug 26, 2016 16:06
--- NOTE | 2016-08-26 16:18 | HHI.PR ---
Subjective Remarks Patient seen and examined today with Dr. Martinez. Patient states that he is feeling better. Patient still with uncontrolled heart rate at [id number]. Patient with significantly decreased ejection fraction. Awaiting nuclear stress test for further evaluation. Objective Vitals Vital Signs Date Time Temp Pulse Resp B/P Pulse Ox O2 Delivery O2 Flow Rate FiO2 08/26/16 13:00 102 28 08/26/16 13:00 102 28 08/26/16 12:45 116 30 08/26/16 12:30 122 33 08/26/16 12:00 97.8 110 28 93 08/26/16 12:00 110 28 08/26/16 12:00 94 Nasal Cannula 2.00 Humidified 08/26/16 12:00 110 08/26/16 11:53 108 25 107/77 08/26/16 10:30 100 25 08/26/16 10:00 106 27 08/26/16 09:30 114 26 08/26/16 09:00 114 24 08/26/16 08:00 128 30 08/26/16 08:00 110 08/26/16 08:00 95 Nasal Cannula 2.00 08/26/16 08:00 93 Nasal Cannula 2.00 Humidified 08/26/16 08:00 97.7 08/26/16 07:49 124 29 129/93 93 08/26/16 07:45 120 25 94 08/26/16 07:30 152 26 94 08/26/16 07:15 138 24 94 08/26/16 07:00 108 25 95 08/26/16 04:00 94 Nasal Cannula 4.00 Humidified 08/26/16 04:00 92 08/26/16 04:00 97.6 92 22 137/98 94 08/26/16 00:00 98.0 110 26 127/95 93 08/26/16 00:00 110 08/26/16 00:00 93 Nasal Cannula 4.00 Humidified 08/25/16 23:25 88 Nasal Cannula 4.00 08/25/16 20:00 94 Nasal Cannula 2.00 Humidified 08/25/16 20:00 97.8 95 26 119/87 94 08/25/16 20:00 95 08/25/16 19:10 93 Nasal Cannula 2.00 I/O 08/25/16 08/25/16 08/25/16 08/26/16 08/26/1628/17 07:00 15:00 23:00 07:00 15:00 23:00 Intake Total 320 ml 560 ml 480 ml 240 ml 320 ml Output Total 1350 ml 1650 ml 1400 ml 1000 ml 1300 ml Balance -1030 ml -1090 ml -920 ml -760 ml -980 ml Intake Oral 320 ml 560 ml 480 ml 240 ml 320 ml Output Urine Total 1350 ml 1650 ml 1400 ml 1000 ml 1300 ml # Voids 3 3 # Bowel Movements 0 0 0 1 Result Diagram: 08/23/16 0558 08/25/16 0440 Objective Remarks GENERAL: Well-developed, well-nourished, in no acute distress. alert and orientated HEENT: Head is normocephalic without any lesions or masses noted. Facial features are symmetric. Eyes: Extraocular muscles are intact. Conjunctivae were clear. NECK: Supple without any masses. Trachea midline no deviation. No JVD, CARDIAC: Irregular rhythm, irregular rate. S1/S2 are heard. No murmurs gallops or rubs. LUNGS: Clear to auscultation bilaterally. No wheeze, rhonchi or rales. No use of accessory muscles on inspiration or expiration. ABDOMEN: Soft, nontender. Nondistended. Bowel sounds heard in all 4 quadrants. No organomegaly or masses. Negative rebound, negative guarding EXTREMITIES: 2+ pitting edema noted bilateral lower extremities, pulses are equal bilaterally. No cyanosis or clubbing NEUROLOGY: Mood and affect appear appropriate. Cranial nerves II through XII grossly intact. Moving all extremities, speech is clear Urinary Catheter: No Vascular Central Line Catheter: No A/P Assessment and Plan 1. A. fib RVR: EKG with A. fib RVR: initially heart rate 191 and negative troponin. Patient was started on Cardizem IV, that has been discontinued and patient is on by mouth medications at this time. Patient's heart rate with improved control on Cardizem 180 mg, Coreg 25 mg twice daily. Eliquis for anticoagulation. Cardiology following the patient 2. Acute systolic congestive heart failure: BNP 430 and presentation. Diuretics have been discontinued at this time. Patient started on low-dose Entresto. Echocardiogram shows significant decreased ejection fraction 25-30%. Left ventricular function was severely reduced. 3. Cardiomyopathy, left ventricular dysfunction: Patient ejection fraction 25 30 percent. Cardiology following the patient. Patient started on Coreg for improvement in cardiac function. Awaiting stress test for further recommendations. Patient may need LifeVest prior to discharge or evaluation for pacemaker/AICD 4. Acute renal failure superimposed on chronic kidney disease with hyperkalemia : Improving, Could be attributed to diuresis, antibiotics, cardiomyopathy. Nephrology following the patient. 5. Bilateral LE cellulitis: Patient with history of peripheral vascular disease per EMR. Afebrile. Patient was started on multiple antibiotics to include doxycycline, Teflaro and clindamycin. Does have been discontinued secondary to patient's renal functions. Infectious disease has evaluated the patient and patient has been started on Ceftin 500 mg twice daily. 6. DVT prevention: On Eliquis. Written by Jason Cruz, acting as scribe for Dr. Martinez on 08/26/16. All or portions of this note were transcribed by scribe Jason Cruz. I, Dr. Jason Martinez personally performed the history, physical exam, and medical decision making; and confirmed the accuracy of the information in the transcribed note. Authenticated by Dr. Jason Martinez on 08/26/16 at 18:35. Jason Cruz Aug 26, 2016 16:18 Jason Martinez MD Aug 26, 2016 18:35
[2016-08-26] MEDS ORDERED: DILTIAZEM-CD 180 MG CAP ER PO ONE (17:00)
[2016-08-26] MEDS: ALPRAZolam 0.25 MG TAB PO PRN (20:19)
[2016-08-27] VITALS (43 sets, daily range): BP systolic 91–135; BP diastolic 63–84; PULSE 77–121; RESP 16–38; TEMP 97.4–98.6; O2SAT 91–100
[2016-08-27 05:30] LABS: POTASSIUM 4.6 MEQ/L (3.5-5.1)
[2016-08-27 05:34] LABS: BICARBONATE 29.8 MEQ/L (21.0-32.0)
[2016-08-27] MEDS ORDERED: DIGOXIN 0.5 MG/2 ML VIAL IVS STA (07:38)
--- NOTE | 2016-08-27 07:46 | PD.CARD.PN ---
Subjective Subjective Remarks Pt feels better, still resting RVR on tele Objective Medications Administered Medications Medications (Trade) Dose Ordered Sig/Rosendo Route PRN Reason Start Time Stop Time Status Last Admin Dose Admin Miscellaneous Information Patient in critical care unit? Ass... Q361D XX 08/21/16 08:30 08/21/16 08:30 IV Flush (NS Flush) 2 ml BID IV FLUSH 08/21/16 09:15 08/26/16 20:20 Potassium Chloride (KCl) 10 meq Q12HR PO 08/24/16 21:00 08/26/16 20:20 Apixaban (Eliquis) 5 mg BID PO 08/24/16 21:00 08/26/16 20:19 Sacubitril/ Valsartan (Entresto 24-26 Mg) 1 tab BID PO 08/25/16 09:00 08/26/16 20:19 Furosemide (Lasix) 20 mg DAILY PO 08/25/16 09:00 08/26/16 08:36 Cefuroxime Axetil (Ceftin) 500 mg Q12HR PO 08/25/16 21:00 08/26/16 20:21 Carvedilol (Coreg) 25 mg Q12HR PO 08/26/16 09:00 08/26/16 20:19 Alprazolam (Xanax) 0.25 mg Q6H PRN PO ANXIETY 08/26/16 18:45 08/26/16 20:19 Vital Signs / I&O Vital Signs Date Time Temp Pulse Resp B/P Pulse Ox O2 Delivery O2 Flow Rate FiO2 08/27/16 04:00 100 08/27/16 04:00 97.6 100 16 123/84 100 08/27/16 03:30 96 25 08/27/16 03:15 94 22 08/27/16 03:00 92 21 08/27/16 02:45 96 22 08/27/16 02:30 96 23 08/27/16 02:15 92 23 08/27/16 02:00 94 21 08/27/16 01:45 96 20 08/27/16 01:30 94 23 08/27/16 01:15 96 26 08/27/16 01:00 110 25 08/27/16 00:45 98 25 08/27/16 00:30 100 24 08/27/16 00:15 96 23 08/27/16 00:00 98 24 08/27/16 00:00 98.6 90 24 106/80 93 08/27/16 00:00 90 08/26/16 23:45 98 25 08/26/16 23:33 94 Nasal Cannula 2.00 08/26/16 23:30 102 24 08/26/16 23:22 110 27 106/80 08/26/16 23:15 100 22 08/26/16 23:00 102 23 08/26/16 22:45 108 26 08/26/16 22:30 108 26 08/26/16 22:15 108 25 08/26/16 22:00 112 25 08/26/16 21:45 130 27 08/26/16 21:30 112 27 08/26/16 21:00 116 31 08/26/16 20:45 124 30 08/26/16 20:30 126 32 08/26/16 20:30 105/79 08/26/16 20:26 134 36 105/79 08/26/16 20:24 130 30 100/76 08/26/16 20:15 120 30 08/26/16 20:00 126 30 08/26/16 20:00 98.1 150 26 92/75 92 08/26/16 20:00 93 Nasal Cannula 2.00 08/26/16 20:00 133 08/26/16 19:45 124 29 08/26/16 19:30 130 29 08/26/16 19:15 138 27 08/26/16 19:10 144 29 92/75 91 08/26/16 19:09 136 29 91 08/26/16 19:07 144 30 08/26/16 19:00 144 28 08/26/16 18:00 146 08/26/16 17:45 122 08/26/16 17:30 134 08/26/16 17:15 124 08/26/16 17:00 126 08/26/16 16:46 91 Room Air 08/26/16 16:45 118 08/26/16 16:30 124 08/26/16 16:22 118 30 119/94 91 08/26/16 16:00 118 08/26/16 16:00 118 29 08/26/16 16:00 98.5 08/26/16 15:45 122 08/26/16 15:00 133 08/26/16 14:30 122 08/26/16 13:00 102 28 08/26/16 13:00 102 28 08/26/16 12:45 116 30 08/26/16 12:30 122 33 08/26/16 12:00 97.8 110 28 93 08/26/16 12:00 110 28 08/26/16 12:00 94 Nasal Cannula 2.00 Humidified 08/26/16 12:00 110 08/26/16 11:53 108 25 107/77 08/26/16 10:30 100 25 08/26/16 10:00 106 27 08/26/16 09:30 114 26 08/26/16 09:00 114 24 08/26/16 08:00 128 30 08/26/16 08:00 110 08/26/16 08:00 95 Nasal Cannula 2.00 08/26/16 08:00 93 Nasal Cannula 2.00 Humidified 08/26/16 08:00 97.7 08/26/16 07:49 124 29 129/93 93 08/26/16 07:45 120 25 94 I/O 08/26/16 08/26/16 08/26/16 08/27/16 08/27/16 08/27/16 07:00 15:00 23:00 07:00 15:00 23:00 Intake Total 240 ml 320 ml 200 ml 60 ml Output Total 1000 ml 1300 ml 600 ml 800 ml Balance -760 ml -980 ml -400 ml -740 ml Intake Oral 240 ml 320 ml 200 ml 60 ml Output Urine Total 1000 ml 1300 ml 600 ml 800 ml # Voids 1 # Bowel Movements 1 1 Physical Exam GENERAL: This is a well-nourished, well-developed patient, in no apparent distress. CARDIOVASCULAR: slightly rapid rate and irregular rhythm without murmurs, gallops, or rubs. RESPIRATORY: Clear to auscultation. Breath sounds equal bilaterally. No wheezes , rales, or rhonchi. GASTROINTESTINAL: Abdomen soft, non-tender, nondistended. Normal, active bowel sounds MUSCULOSKELETAL: Extremities without clubbing, cyanosis, or edema. NEURO: Alert & Oriented x4 to person, place, time, situation. Moves all ext x4 Laboratory Laboratory Tests Test 08/27/16 04:30 Sodium Level 140 MEQ/L Potassium Level 4.6 MEQ/L Chloride Level 102 MEQ/L Carbon Dioxide Level 29.8 MEQ/L Anion Gap 8 MEQ/L Blood Urea Nitrogen 13 MG/DL Creatinine 0.85 MG/DL Estimat Glomerular Filtration 92 ML/MIN Rate Random Glucose 100 MG/DL Calcium Level 8.6 MG/DL Imaging Last Impressions Chest X-Ray 08/25/16 0000 Signed Impressions: Service Date/Time: Thursday, August 25, 2016 13:32 - CONCLUSION: 1. Small bilateral pleural effusions. 2. Compensated cardiomegaly. Rj Chavarria MD FACR Renal Ultrasound 08/23/16 0000 Signed Impressions: Service Date/Time: Tuesday, August 23, 2016 12:18 - CONCLUSION: 1. The kidneys appear adequate in size and echotexture. There are no findings to indicate renal obstruction. 2. Bilateral pleural effusions. Hero Chavarria MD Assessment and Plan Problem List: (1) Acute systolic CHF (congestive heart failure) Assessment and Plan: currently compensated (2) Left ventricular systolic dysfunction Assessment and Plan: on entresto/coreg will get second part of nuclear stress test today; (3) Atrial fibrillation with RVR Assessment and Plan: on max dose coreg/cardizem; added back digoxin; may have to consider ablation if rates cannot be controlled with meds. On eliquis. (4) Cardiomyopathy Assessment and Plan: Likely NICM, for second part of nuc stress today; discussed life-vest, he is still considering, on bb/Caden Leon MD Aug 27, 2016 07:46
[2016-08-27] MEDS: SODIUM CHLORIDE 0.9% FLUSH 5 ML FLUSH IV FLUSH SCH ×2 (08:08→20:16)
[2016-08-27] MEDS: CEFUROXIME AXETIL 500 MG TAB PO SCH ×2 (08:18→20:16)
[2016-08-27] MEDS: FUROSEMIDE 20 MG TAB PO SCH (08:18)
[2016-08-27] MEDS: CARVEDILOL 12.5 MG TAB PO SCH ×2 (08:18→20:16)
[2016-08-27] MEDS: SACUBITRIL/VALSARTAN 24 MG-26 MG TAB PO SCH ×2 (08:18→20:16)
[2016-08-27] MEDS: DILTIAZEM-CD 180 MG CAP ER PO SCH (08:19)
[2016-08-27] MEDS: APIXABAN 5 MG TABLET PO SCH ×2 (08:19→20:16)
[2016-08-27] MEDS: POTASSIUM CHLORIDE 10 MEQ CONTROLLED RELEASE TAB PO SCH ×2 (08:19→20:15)
--- NOTE | 2016-08-27 09:48 | RADHPO ---
EXAM DATE/TIME: 08/26/2016 11:44 [facility] COMPARISON: No previous studies available for comparison. INDICATIONS : Cardiomyopathy with dyspnea. Atrial fibrillation. DOSE: 30 mCi Tc99m Myoview at stress. 30 mCi Tc99m Myoview at rest. 0.4 mg Lexiscan STRESS SYMPTOMS: Dyspnea. EJECTION FRACTION: 47% MEDICAL HISTORY : Hypertension. SURGICAL HISTORY : Vein stripping left leg. ENCOUNTER: Initial ACUITY: 3 days PAIN SCALE: 0/10 LOCATION: Left chest TECHNIQUE: The patient underwent pharmacologic stress with infusion of prescribed dose. Continuous ECG tracing was monitored during stress. Gated SPECT imaging was performed after stress and conventional SPECT i maging was performed at rest. The examination was performed on a SPECT/CT scanner, both attenuation and non-corrected datasets were reviewed. FINDINGS: DISTRIBUTION: The maximum perfused segment at stress is in the lateral wall. PERFUSION STUDY: The pattern of perfusion at stress is within normal limits. GATED STUDY: There is intact wall motion and thickening without hypokinetic or dyskinetic segments. CONCLUSION: No significant reversible defects identified to suggest acute ischemia. RISK CATEGORY: Low Marcell Pimentel Jr., MD on August 27, 2016 at 9:40 Board Certified Radiologist. This report was verified electronically.
--- NOTE | 2016-08-27 16:18 | HHI.PR ---
Subjective Remarks Patient seen and examined today with Dr. Martinez. Patient's heart rate improved with increase of medications by cardiology. Patient edema is much improved. Patient is feeling better today. Objective Vitals Vital Signs Date Time Temp Pulse Resp B/P Pulse Ox O2 Delivery O2 Flow Rate FiO2 08/27/16 16:00 97.9 86 29 91/72 93 08/27/16 12:15 93 Room Air 08/27/16 12:15 77 08/27/16 12:00 97.8 84 23 95/67 92 08/27/16 08:15 121 08/27/16 08:00 97.4 08/27/16 08:00 93 Nasal Cannula 2.00 08/27/16 07:45 93 2.00 08/27/16 04:00 100 08/27/16 04:00 97.6 100 16 123/84 100 08/27/16 03:30 96 25 08/27/16 03:15 94 22 08/27/16 03:00 92 21 08/27/16 02:45 96 22 08/27/16 02:30 96 23 08/27/16 02:15 92 23 08/27/16 02:00 94 21 08/27/16 01:45 96 20 08/27/16 01:30 94 23 08/27/16 01:15 96 26 08/27/16 01:00 110 25 08/27/16 00:45 98 25 08/27/16 00:30 100 24 08/27/16 00:15 96 23 08/27/16 00:00 98 24 08/27/16 00:00 98.6 90 24 106/80 93 08/27/16 00:00 90 08/26/16 23:45 98 25 08/26/16 23:33 94 Nasal Cannula 2.00 08/26/16 23:30 102 24 08/26/16 23:22 110 27 106/80 08/26/16 23:15 100 22 08/26/16 23:00 102 23 08/26/16 22:45 108 26 08/26/16 22:30 108 26 08/26/16 22:15 108 25 08/26/16 22:00 112 25 08/26/16 21:45 130 27 08/26/16 21:30 112 27 08/26/16 21:00 116 31 08/26/16 20:45 124 30 08/26/16 20:30 126 32 08/26/16 20:30 105/79 08/26/16 20:26 134 36 105/79 08/26/16 20:24 130 30 100/76 08/26/16 20:15 120 30 08/26/16 20:00 126 30 08/26/16 20:00 98.1 150 26 92/75 92 08/26/16 20:00 93 Nasal Cannula 2.00 08/26/16 20:00 133 08/26/16 19:45 124 29 08/26/16 19:30 130 29 08/26/16 19:15 138 27 08/26/16 19:10 144 29 92/75 91 08/26/16 19:09 136 29 91 08/26/16 19:07 144 30 08/26/16 19:00 144 28 08/26/16 18:00 146 08/26/16 17:45 122 08/26/16 17:30 134 08/26/16 17:15 124 08/26/16 17:00 126 08/26/16 16:46 91 Room Air 08/26/16 16:45 118 08/26/16 16:30 124 08/26/16 16:22 118 30 119/94 91 I/O 08/26/16 08/26/16 08/26/16 08/27/16 08/27/16 08/27/16 07:00 15:00 23:00 07:00 15:00 23:00 Intake Total 240 ml 320 ml 200 ml 60 ml Output Total 1000 ml 1300 ml 600 ml 800 ml 550 ml Balance -760 ml -980 ml -400 ml -740 ml -550 ml Intake Oral 240 ml 320 ml 200 ml 60 ml Output Urine Total 1000 ml 1300 ml 600 ml 800 ml 550 ml # Voids 1 # Bowel Movements 1 1 Result Diagram: 08/23/16 0558 08/27/16 0430 Objective Remarks GENERAL: Well-developed, well-nourished, in no acute distress. alert and orientated HEENT: Head is normocephalic without any lesions or masses noted. Facial features are symmetric. Eyes: Extraocular muscles are intact. Conjunctivae were clear. NECK: Supple without any masses. Trachea midline no deviation. No JVD, CARDIAC: Irregular rhythm, irregular rate. S1/S2 are heard. No murmurs gallops or rubs. LUNGS: Clear to auscultation bilaterally. No wheeze, rhonchi or rales. No use of accessory muscles on inspiration or expiration. ABDOMEN: Soft, nontender. Nondistended. Bowel sounds heard in all 4 quadrants. No organomegaly or masses. Negative rebound, negative guarding EXTREMITIES: 2+ pitting edema noted bilateral lower extremities, pulses are equal bilaterally. No cyanosis or clubbing NEUROLOGY: Mood and affect appear appropriate. Cranial nerves II through XII grossly intact. Moving all extremities, speech is clear Urinary Catheter: No Vascular Central Line Catheter: No A/P Assessment and Plan 1. A. fib RVR: EKG with A. fib RVR: initially heart rate 191 and negative troponin. Patient was started on Cardizem IV, that has been discontinued and patient is on by mouth medications at this time. Patient's heart rate with improved control on Cardizem 360 mg, Coreg 25 mg twice daily, digoxin 0.25 mg daily. Eliquis for anticoagulation. Cardiology following the patient. If heart rate not controlled patient will likely require ablation 2. Acute systolic congestive heart failure: BNP 430 and presentation. Diuretics have been discontinued at this time. Patient started on low-dose Entresto. Echocardiogram shows significant decreased ejection fraction 25-30%. Left ventricular function was severely reduced. 3. Cardiomyopathy, left ventricular dysfunction: Patient ejection fraction 25 30 percent. Cardiology following the patient. Patient started on Coreg for improvement in cardiac function. Awaiting stress test for further recommendations. Patient may need LifeVest prior to discharge or evaluation for pacemaker/AICD 4. Acute renal failure superimposed on chronic kidney disease with hyperkalemia : Improving, Could be attributed to diuresis, antibiotics, cardiomyopathy. Nephrology following the patient. 5. Bilateral LE cellulitis: Patient with history of peripheral vascular disease per EMR. Afebrile. Patient was started on multiple antibiotics to include doxycycline, Teflaro and clindamycin. Does have been discontinued secondary to patient's renal functions. Infectious disease has evaluated the patient and patient has been started on Ceftin 500 mg twice daily. 6. DVT prevention: On Eliquis. Written by Jason Cruz, acting as scribe for Dr. Martinez on 08/27/16 at 16:17. All or portions of this note were transcribed by scribe Jason Cruz. I, Dr. Jason Martinez personally performed the history, physical exam, and medical decision making; and confirmed the accuracy of the information in the transcribed note. Authenticated by Dr. Jason Martinez on 08/27/16 at 16:48. Discharge Planning Discharge planning 2448 hours if heart rate remained stable. Jason Cruz Aug 27, 2016 16:18 Jason Martinez MD Aug 27, 2016 16:48
[2016-08-27 17:52] LABS: MYELOPEROXIDASE LESS THAN 1.0 AI (<1.0); PROTEINASE-3 LESS THAN 1.0 AI (<1.0)
[2016-08-27] MEDS: ALPRAZolam 0.25 MG TAB PO PRN (20:30)
[2016-08-28] VITALS (24 sets, daily range): BP systolic 108–136; BP diastolic 79–91; PULSE 80–98; RESP 22–41; TEMP 97.6–98.6; O2SAT 94
--- NOTE | 2016-08-28 07:40 | PD.CARD.PN ---
Subjective Subjective Remarks Improved rates on tele, pt off O2, wants to go home, no sx. Objective Medications Administered Medications Medications (Trade) Dose Ordered Sig/Rosendo Route PRN Reason Start Time Stop Time Status Last Admin Dose Admin Miscellaneous Information Patient in critical care unit? Ass... [id number] XX 08/21/16 08:30 08/21/16 08:30 IV Flush (NS Flush) 2 ml BID IV FLUSH 08/21/16 09:15 08/27/16 20:16 Potassium Chloride (KCl) 10 meq Q12HR PO 08/24/16 21:00 08/27/16 20:15 Apixaban (Eliquis) 5 mg BID PO 08/24/16 21:00 08/27/16 20:16 Sacubitril/ Valsartan (Entresto 24-26 Mg) 1 tab BID PO 08/25/16 09:00 08/27/16 20:16 Furosemide (Lasix) 20 mg DAILY PO 08/25/16 09:00 08/27/16 08:18 Cefuroxime Axetil (Ceftin) 500 mg Q12HR PO 08/25/16 21:00 08/27/16 20:16 Carvedilol (Coreg) 25 mg Q12HR PO 08/26/16 09:00 08/27/16 20:16 Diltiazem HCl (Cardizem Cd) 360 mg DAILY PO 08/27/16 09:00 08/27/16 08:19 Alprazolam (Xanax) 0.25 mg Q6H PRN PO ANXIETY 08/26/16 18:45 08/27/16 20:30 Vital Signs / I&O Vital Signs Date Time Temp Pulse Resp B/P Pulse Ox O2 Delivery O2 Flow Rate FiO2 08/28/16 06:15 92 25 08/28/16 06:00 84 22 08/28/16 05:45 86 23 08/28/16 05:30 84 23 08/28/16 05:15 84 25 08/28/16 05:00 86 25 08/28/16 04:45 86 28 08/28/16 04:30 90 25 08/28/16 04:15 84 27 08/28/16 04:00 80 08/28/16 04:00 98.4 80 23 136/91 94 08/28/16 04:00 94 Nasal Cannula 2.00 08/28/16 03:00 84 23 08/28/16 02:45 84 22 08/28/16 02:30 82 25 08/28/16 02:15 82 41 08/28/16 02:00 88 26 08/28/16 01:45 96 25 08/28/16 01:30 84 25 08/28/16 01:15 82 23 08/28/16 01:00 86 23 08/28/16 00:45 86 22 08/28/16 00:30 82 26 08/28/16 00:15 82 24 08/28/16 00:00 81 08/28/16 00:00 98.6 81 26 108/79 94 08/28/16 00:00 91 Nasal Cannula 2.00 08/28/16 00:00 82 25 08/27/16 23:15 86 25 08/27/16 23:00 118 38 08/27/16 22:45 86 22 08/27/16 22:30 86 23 08/27/16 22:15 92 24 08/27/16 22:00 86 22 08/27/16 21:45 84 24 08/27/16 21:30 86 26 08/27/16 21:15 84 28 08/27/16 21:00 90 32 08/27/16 20:45 86 27 08/27/16 20:30 92 27 92 08/27/16 20:15 94 28 91 08/27/16 20:00 96 27 91 08/27/16 20:00 96 08/27/16 20:00 97.6 110 22 135/63 94 08/27/16 20:00 91 Nasal Cannula 2.00 08/27/16 19:59 96 31 135/63 91 08/27/16 19:45 92 30 08/27/16 19:30 92 28 08/27/16 19:15 92 26 08/27/16 19:10 96 21 08/27/16 19:00 90 26 08/27/16 18:40 110 08/27/16 16:00 94 Room Air 08/27/16 16:00 97.9 86 29 91/72 93 08/27/16 16:00 88 08/27/16 12:15 93 Room Air 08/27/16 12:15 77 08/27/16 12:00 97.8 84 23 95/67 92 08/27/16 08:15 121 08/27/16 08:00 97.4 08/27/16 08:00 93 Nasal Cannula 2.00 08/27/16 07:45 93 2.00 I/O 08/27/16 08/27/16 08/27/16 08/28/16 08/28/16 08/28/16 07:00 15:00 23:00 07:00 15:00 23:00 Intake Total 60 ml 890 ml 240 ml 60 ml Output Total 800 ml 1150 ml 1100 ml 1200 ml Balance -740 ml -260 ml -860 ml -1140 ml Intake Oral 60 ml 890 ml 240 ml 60 ml Output Urine Total 800 ml 1150 ml 1100 ml 1200 ml # Bowel Movements 0 1 Physical Exam GENERAL: This is a well-nourished, well-developed patient, in no apparent distress. CARDIOVASCULAR: regular rate and irregular rhythm without murmurs, gallops, or rubs. RESPIRATORY: Clear to auscultation. Breath sounds equal bilaterally. No wheezes , rales, or rhonchi. GASTROINTESTINAL: Abdomen soft, non-tender, nondistended. Normal, active bowel sounds MUSCULOSKELETAL: Extremities without clubbing, cyanosis, or edema. NEURO: Alert & Oriented x4 to person, place, time, situation. Moves all ext x4 Imaging Last Impressions Myocardial Perfusion Scan Nuc Med 08/26/16 0000 Signed Impressions: Service Date/Time: Friday, August 26, 2016 11:44 - CONCLUSION: No significant reversible defects identified to suggest acute ischemia. RISK CATEGORY: Low Marcell Pimentel Jr., MD Chest X-Ray 08/25/16 0000 Signed Impressions: Service Date/Time: Thursday, August 25, 2016 13:32 - CONCLUSION: 1. Small bilateral pleural effusions. 2. Compensated cardiomegaly. Rj Chavarria MD FACR Renal Ultrasound 08/23/16 0000 Signed Impressions: Service Date/Time: Tuesday, August 23, 2016 12:18 - CONCLUSION: 1. The kidneys appear adequate in size and echotexture. There are no findings to indicate renal obstruction. 2. Bilateral pleural effusions. Hero Chavarria MD Assessment and Plan Problem List: (1) Acute systolic CHF (congestive heart failure) Assessment and Plan: currently compensated (2) Left ventricular systolic dysfunction Assessment and Plan: on entresto/coreg; no ischemia by nuc stress and LV may be improved since rate controlled. (3) Atrial fibrillation with RVR Assessment and Plan: on max dose coreg/cardizem; added back digoxin; may have to consider ablation if rates cannot be controlled with meds, though reasonable now, will get holter as outpt.. On eliquis. (4) Cardiomyopathy Assessment and Plan: NICM likely due to tachycardia, though may be improved by nuclear stress (45-50%); discussed life-vest, he declined, on bb/entresto Assessment and Plan Ok to d/c home from my standpoint, asked for dig level in a week, can see me in 1-2 weeks (he wishes to go to the [place] office as he lives nearby.) Caden Marrero MD Aug 28, 2016 07:40
[2016-08-28] MEDS: SACUBITRIL/VALSARTAN 24 MG-26 MG TAB PO SCH (08:10)
[2016-08-28] MEDS: CARVEDILOL 12.5 MG TAB PO SCH (08:10)
[2016-08-28] MEDS: APIXABAN 5 MG TABLET PO SCH (08:11)
[2016-08-28] MEDS: POTASSIUM CHLORIDE 10 MEQ CONTROLLED RELEASE TAB PO SCH (08:11)
[2016-08-28] MEDS: FUROSEMIDE 20 MG TAB PO SCH (08:11)
[2016-08-28] MEDS: CEFUROXIME AXETIL 500 MG TAB PO SCH (08:11)
[2016-08-28] MEDS: DILTIAZEM-CD 180 MG CAP ER PO SCH (08:12)
[2016-08-28] MEDS: SODIUM CHLORIDE 0.9% FLUSH 5 ML FLUSH IV FLUSH SCH (08:12)
[2016-08-28] MEDS ORDERED: DIGOXIN 0.25 MG TAB PO SCH (09:00)
[2016-08-28] MEDS ORDERED: APIX5TAB PO (09:15)
[2016-08-28] MEDS ORDERED: CARD180C5 PO (09:15)
[2016-08-28] MEDS ORDERED: DIGO0.25 PO (09:15)
[2016-08-28] MEDS ORDERED: CARV12.5 PO (09:15)
[2016-08-28] MEDS ORDERED: FURO20TA PO (09:15)
[2016-08-28] MEDS ORDERED: SACU1TAB PO (09:15)
[2016-08-28] MEDS ORDERED: POTA-243 PO (09:15)
[2016-08-28] MEDS ORDERED: CEFT500T3 PO (09:16)
--- NOTE | 2016-08-28 09:16 | HHI.DCPOC ---
Discharge Care Plan Diagnosis: (1) Atrial fibrillation with RVR (2) Acute systolic CHF (congestive heart failure) (3) Cardiomyopathy Goals to Promote Your Health * To prevent worsening of your condition and complications * To maintain your health at the optimal level Directions to Meet Your Goals Take your medications as prescribed Follow your dietary instruction Follow activity as directed Keep your appointments as scheduled Take your immunizations and boosters as scheduled If your symptoms worsen call your PCP, if no PCP go to Urgent Care Center or Emergency Room Smoking is Dangerous to Your Health. Avoid second hand smoke Call the 24-hour hour crisis hotline for domestic abuse at Jason Cruz Aug 28, 2016 09:16
--- NOTE | 2016-08-28 09:45 | HHI.DS ---
Discharge Summary Admission Date Aug 21, 2016 at 02:22 Discharge Date: Aug 28, 2016 Admitting Diagnosis AFRVR; chf; LE cellulitis (1) Atrial fibrillation with RVR ICD Code: I48.91 (2) CHF (congestive heart failure) ICD Code: I50.9 (3) Lower extremity cellulitis ICD Code: L03.119 (4) Hyperkalemia ICD Code: E87.5 (5) Acute renal failure ICD Code: N17.9 (6) Leukocytosis ICD Code: D72.829 Procedures Echocardiogram indicates systolic function severely reduced. Ejection fraction 2530 percent. Diffuse hypokinesis Brief History - From Admission 61-year-old male with history of peripheral vascular disease and hypertension is admitted for A. fib RVR, CHF, and lower extremity cellulitis. The patient was seen in the [place] ED on 08/03/16 and states he was diagnosed with bronchitis at that time. He states he was prescribed steroids and antibiotics and he took all of them but he continued not feeling well and took NyQuil at home. He then states his feet started swelling and he admits to worsening redness of the lower extremities are last 4-5 days. He denies any fevers or chills. He states his heart has also been "beating fast" along with significant shortness of breath. He denies any headache, blurred vision. Denies any cough. Denies any nausea, vomiting, dysuria, or diarrhea. He does state he has a sore throat and it hurts to swallow. Denies any personal history of diabetes, hyperlipidemia, stroke, or cardiac issues. CBC/BMP: 08/27/16 0430 Imaging Last Impressions Myocardial Perfusion Scan Nuc Med 08/26/16 0000 Signed Impressions: Service Date/Time: Friday, August 26, 2016 11:44 - CONCLUSION: No significant reversible defects identified to suggest acute ischemia. RISK CATEGORY: Low Marcell Pimentel Jr., MD Chest X-Ray 08/25/16 0000 Signed Impressions: Service Date/Time: Thursday, August 25, 2016 13:32 - CONCLUSION: 1. Small bilateral pleural effusions. 2. Compensated cardiomegaly. Rj G. Miles , MD FACR Renal Ultrasound 08/23/16 0000 Signed Impressions: Service Date/Time: Tuesday, August 23, 2016 12:18 - CONCLUSION: 1. The kidneys appear adequate in size and echotexture. There are no findings to indicate renal obstruction. 2. Bilateral pleural effusions. Hero Chavarria MD PE at Discharge GENERAL: Well-developed, well-nourished, in no acute distress. alert and orientated HEENT: Head is normocephalic without any lesions or masses noted. Facial features are symmetric. Eyes: Extraocular muscles are intact. Conjunctivae were clear. NECK: Supple without any masses. Trachea midline no deviation. No JVD, CARDIAC: Irregular rhythm, irregular rate. S1/S2 are heard. No murmurs gallops or rubs. LUNGS: Clear to auscultation bilaterally. No wheeze, rhonchi or rales. No use of accessory muscles on inspiration or expiration. ABDOMEN: Soft, nontender. Nondistended. Bowel sounds heard in all 4 quadrants. No organomegaly or masses. Negative rebound, negative guarding EXTREMITIES: 2+ pitting edema noted bilateral lower extremities, pulses are equal bilaterally. No cyanosis or clubbing NEUROLOGY: Mood and affect appear appropriate. Cranial nerves II through XII grossly intact. Moving all extremities, speech is clear Hospital Course 61 year-old male who originally presented to hospital because of lower extremity edema, redness and lower extremities. Shortness of breath, fast heart rate. Patient found to have multiple medical problems to include acute congestive heart failure, atrial fibrillation, cellulitis of lower extremities. Patient started treatment with diuretic, Cardizem IV for rate control, antibiotics for cellulitis. Cardiology was consulted for further recommendations. Patient did undergo echocardiogram which did show significant left ventricular dysfunction, ejection fraction 25-30%. Patient underwent cardiac stress testing which did not indicate any reversible ischemia. Patient was switched to multiple medications. He is started on Lopressor for rate control and cardioprotection. However did not respond well with rate control and in light of the patient's severe cardiomyopathy patient was started on Coreg and it was increased to 25 mg twice daily. Patient was converted to by mouth Cardizem at 180 mg daily, however rate was not controlled and was increased to 360 mg daily. Patient heart rates still in the 110s and cardiology loaded patient with digoxin with improvement of his heart rate. Patient now has heart rate controlled with medications. Patient continued diuresis well, swelling in his legs improved. The erythema noted to his lower extremities improved with the reduction of his swelling as well as antibiotics. Patient will require oxygen for O2 supplementation. He did undergo oxygen walk study, he did not require oxygen. Patient has been clinically stabilized on medications at this time. Cardiology has signed off and recommended digoxin level in one week in follow-up in his office in [address] Cleveland did extensive counseling the patient to do daily weights, monitor lower extremity edema. Recommended compression stockings. Recommended not doing any strenuous activity until seen by Dr. Marrero. Continue fluid restriction. Extensively counseled patient on monitoring his symptoms, i.e. leg swelling, shortness of breath, orthopnea, dyspnea on exertion. Plan discharge home with appropriate outpatient follow-up. Pt Condition on Discharge: Stable Discharge Disposition: Discharge Home Discharge Time: > 30 minutes Discharge Instructions DIET: Follow Instructions for: Heart Healthy Diet Additional Diet Instructions: Fluid restriction 1500 mL/day Activities you can perform: Regular-No Restrictions Follow up Referrals: Cardiology - 2 Weeks with Caden Marrero MD PCP Follow-up - 1 Week New Medications: Apixaban (Eliquis) 5 Mg Tab 5 MG PO BID atrial fibrillation #60 TAB Carvedilol (Coreg) 12.5 Mg Tab 25 MG PO Q12HR cardiomyopathy #60 TAB Cefuroxime (Ceftin) 500 Mg Tab 500 MG PO Q12HR cellulitis #20 TAB Digoxin (Digoxin) 0.25 Mg Tab 0.25 MG PO DAILY atrial fibrillation #30 TAB Diltiazem CD 24 HR (Cardizem CD 24 HR) 180 Mg Caper 360 MG PO DAILY atrial fibrillation #30 CAP Furosemide (Furosemide) 20 Mg Tab 20 MG PO DAILY congestive heart failure #30 TAB Potassium Chloride ER (Klor-Con 10) 10 Meq Tab 10 MEQ PO Q12HR congestive heart failure #60 TAB Sacubitril-Valsartan (Entresto) 24-26 Mg Tab 1 TAB PO BID congestive heart failure #60 TAB Additional Information Written by Jason Cruz PA-C, acting as scribe for Dr. Cleveland on 08/28/16 at 9:30. The documentation accurately reflects the work and decisions performed face-to- face by Dr. Cleveland on 08/28/16 at 9:30. Jason Cruz Aug 28, 2016 09:45
== END 2016-08-28 12:30 | disposition home or self-care (01) | DRG 308 ==
LOC: PHED 20:56 → PHEDA 08-21 02:22 → PHICU 08-21 04:08
PROVIDERS: ADMIT Family Medicine; ATTEND Family Medicine
DX: I48.91 Unspecified atrial fibrillation (principal); I50.21 Acute systolic (congestive) heart failure; N17.9 Acute kidney failure, unspecified; I42.9 Cardiomyopathy, unspecified; L03.115 Cellulitis of right lower limb; L03.116 Cellulitis of left lower limb; E87.5 Hyperkalemia; I13.0 Hypertensive heart and chronic kidney disease with heart failure and stage 1 through stage 4 chronic kidney disease, or unspecified chronic kidney disease; I73.9 Peripheral vascular disease, unspecified; R00.0 Tachycardia, unspecified; N18.2 Chronic kidney disease, stage 2 (mild); I25.9 Chronic ischemic heart disease, unspecified; Z91.19 Patient's noncompliance with other medical treatment and regimen; J40 Bronchitis, not specified as acute or chronic; R09.02 Hypoxemia; Z79.01 Long term (current) use of anticoagulants
CPT/HCPCS: 71010; 71020; 76775; 78452; 80048; 80053; 80162; 80307; 81001; 82550; 83605; 83690; 83735; 83880; 84132; 84443; 84484; 85025; 85610; 85730; 86021; 86038; 86160; 87040; 87641; 90471; 90686; 90732; 93005; 93017; 93306; 94150; 94620; 96365; 96376; A9502; G0009; J0610; J0712; J1160; J1650; J1815; J1940; J2785; J7030; J7050; Q2038